=== PATIENT | female | born 1940 | race Caucasian/White ===

== ENCOUNTER → 2016-06-05 | Outpatient (CLI) | payer MEDICARE | END | disposition home or self-care (01) | LOC: LABWHC1 16:47 | PROVIDERS: ATTEND Internal Medicine Endocrinology, Diabetes & Metabolism | DX: E05.90 Thyrotoxicosis, unspecified without thyrotoxic crisis or storm (principal) | CPT/HCPCS: 36415; 84439; 84443; 84445; 84480 ==

== ENCOUNTER → 2016-07-02 | Outpatient (CLI) | payer MEDICARE ==
--- NOTE | 2016-07-02 10:02 | US ---
EXAMINATION TYPE: US thyroid st tissue head/neck DATE OF EXAM: 07/02/2016 9:34 AM COMPARISON: NONE CLINICAL HISTORY: E05.90 THYROTOXICOSIS. Known hypothyroidism, intermittent use of medication, no pre vious biopsy GLAND SIZE: Right Lobe: 4.0 x 1.2 x 1.4 cm Overall Parenchyma: lobular, heterogeneous Left Lobe: 4.4 x 1.9 x 1.2 cm Overall Parenchyma: lobular, heterogeneous Isthmus Thickness: 0.2 cm NODULES RIGHT: # of nodules measured on right: 0 LEFT: # of nodules measured on left: 0 ISTHMUS: # of nodules measured in the isthmus: 0 TECHNOLOGIST IMPRESSION: Bilateral neck scanned, no abnormal lymphadenopathy noted. Heterogeneous, l obular borders. Thyroid gland is within normal limits in size and slightly heterogeneous appearance but no discrete s olid or cystic nodules are evident bilaterally IMPRESSION: Thyroid gland is heterogeneous in appearance but no worrisome greater than 1 cm solid or cystic nodul es are evident.
== END | disposition home or self-care (01) ==
LOC: RADUSWWP 09:21
PROVIDERS: ATTEND Internal Medicine Endocrinology, Diabetes & Metabolism
DX: E05.90 Thyrotoxicosis, unspecified without thyrotoxic crisis or storm (principal)
CPT/HCPCS: 76536

== ENCOUNTER → 2016-07-17 | Outpatient (CLI) | payer MEDICARE ==
--- NOTE | 2016-07-18 11:15 | NM ---
EXAMINATION TYPE: NM thyroid image w uptake DATE OF EXAM: 07/18/2016 11:04 AM COMPARISON: NONE HISTORY: Thyrotoxicosis. TECHNIQUE: After the intravenous administration of 10.9 mCi Tc 99m Sodium Pertechnetate, thyroid imag ing is performed 7 minutes post injection. Thyroid iodine uptake is calculated after the oral adminis tration of 16 uCi I-131 capsule. FINDINGS: There is normal distribution of activity throughout the gland. The 4 hour iodine uptake is calculated at 14.5% (normal range 8-14%). The 24-hour iodine uptake is calculated at 44.2% (normal r ashley 15-35%). IMPRESSION: 1. NORMAL THYROID IMAGING. 2. EVIDENCE OF HYPERTHYROIDISM.
== END | disposition home or self-care (01) ==
LOC: RADNMMAIN 10:22
PROVIDERS: ATTEND Internal Medicine Endocrinology, Diabetes & Metabolism
DX: E05.90 Thyrotoxicosis, unspecified without thyrotoxic crisis or storm (principal)
CPT/HCPCS: 78014; A9528; A9512

== ENCOUNTER → 2016-08-26 | Outpatient (CLI) | payer MEDICARE ==
[2016-08-26 08:46] LABS: ALT 27 U/L (9-52); AST 33 U/L (14-36); Alkaline Phosphatase 133 U/L (38-126); Anion Gap 10 mmol/L; Blood Urea Nitrogen 21 mg/dL (7-17); Calcium 9.3 mg/dL (8.4-10.2); Carbon Dioxide 27 mmol/L (22-30); Chloride 106 mmol/L (98-107); Glucose 68 mg/dL (74-99); Non-African American GFR(MDRD) >60 (>60 ml/min/1.73 sqM); Potassium 4.2 mmol/L (3.5-5.1); Sodium 143 mmol/L (137-145); Total Bilirubin 0.6 mg/dL (0.2-1.3); Total Protein 7.2 g/dL (6.3-8.2)
== END ==
LOC: LABWHC1 07:56
PROVIDERS: ATTEND Internal Medicine Endocrinology, Diabetes & Metabolism
DX: E05.90 Thyrotoxicosis, unspecified without thyrotoxic crisis or storm (principal)
CPT/HCPCS: 36415; 80053; 84439; 84443

== ENCOUNTER → 2016-10-14 | Outpatient (CLI) | payer MEDICARE | END | disposition home or self-care (01) | LOC: LABWHC1 09:06 | PROVIDERS: ATTEND Internal Medicine Endocrinology, Diabetes & Metabolism | DX: E05.90 Thyrotoxicosis, unspecified without thyrotoxic crisis or storm (principal) | CPT/HCPCS: 36415; 84439; 84443; 84480 ==

== ENCOUNTER → 2016-12-10 | Outpatient (CLI) | payer MEDICARE ==
--- NOTE | 2016-12-10 11:43 | BD ---
EXAMINATION TYPE: MG DEXA axial skeleton. DATE OF EXAM: 12/10/2016 CLINICAL HISTORY: Height: 118 Weight: 61.5 FRAX RISK QUESTIONS: Alcohol (3 or more units per day): no Family History (Parent hip fracture): yes, mother Glucocorticoids (More than 3mos): no (Ex: prednisone, prednisolone, methylprednisolone, dexamethasone, and hydrocortisone). History of Fracture in Adulthood: yes Secondary Osteoporosis: 1. Type 1 Diabetes: no 2. Hyperthyroidism: yes 3. Menopause before 45: no 4. Malnutrition: no 5. Chronic liver disease: no Rheumatoid Arthritis: no Current Tobacco Use: no RISK FACTORS HISTORY OF: Hip Fracture (Right/Left): no Spine Fracture: no History of Wrist Fracture: yes When: age 47 Surgery to Hip(left): no Other Fractures over age 50: yes When: pelvis age 70; left lower femur 2016 Family History of Osteoporosis: no Active: yes Diet low in dairy products/other sources of calcium: at least one serving a day Postmenopausal woman: yes Take estrogen and/or progesterone medications: not now How long: hormonal contraceptives about 6 months; estrogen/progesterone about age [age] Lost more than 2 inches in height since high school: no Frequent falls: no Poor Health: no Hyperparathyroidism: no Adrenal Insufficiency: no MEDICATIONS: Prednisone or other steroids: no Thyroid Medications: yes Which medication: Methimazol How Long: over a year ...but in 2012 started briefly on Synthroid Osteoporosis Medications: no Additional Medications: calcium, Vitamin D, blood pressure meds, cholesterol meds, blood thinner Additional History: Breast CA, radiation, used antineoplastic for several years after breast CA...thy roid was first diagnosed as "hypo", now diagnosed as "hyper" EXAM MEASUREMENTS: Bone mineral densitometry was performed using the Leapset System. Bone mineral density as measured about the Lumbar spine is: ----- L1-L4(G/cm2): 0.900 T Score Values are as follows: ----- L2: -2.5 ----- L3: -2.3 ----- L4: -2.3 ----- L1-L4: -2.3 Bone mineral density has: Decreased -1.7% since study of: 01/05/2013 Bone mineral density about the R hip (g/cm2): 0.680 Bone mineral density about the L hip (g/cm2): 0.620 T Score values are as follows: -----R Neck: -2.6 -----L Neck: -3.0 -----R Total: -2.1 -----L Total: -2.6 Bone mineral density has: Decreased -7.5% since study of: 01/05/2013 IMPRESSION: OSTEOPOROSIS. NOTE: T-SCORE=SD OF THE YOUNG ADULT MEAN.
== END | disposition home or self-care (01) ==
LOC: RADBDWWP 10:32
PROVIDERS: ATTEND Internal Medicine Hematology & Oncology
DX: C50.919 Malignant neoplasm of unspecified site of unspecified female breast (principal); M81.0 Age-related osteoporosis without current pathological fracture
CPT/HCPCS: 77080

== ENCOUNTER → 2017-07-28 | Outpatient (CLI) | payer MEDICARE ==
[2017-07-28 10:24] LABS: HCT 42.3 % (34.0-46.0); HGB 13.2 gm/dL (11.4-16.0); MCH 31.8 pg (25.0-35.0); MCHC 31.2 g/dL (31.0-37.0); MCV 101.7 fL (80.0-100.0); Platelet Count 241 k/uL (150-450); RBC 4.16 m/uL (3.80-5.40); RDW 12.4 % (11.5-15.5); WBC 4.3 k/uL (3.8-10.6)
[2017-07-28 11:48] LABS: ALT 23 U/L (9-52); AST 33 U/L (14-36); Albumin 3.9 g/dL (3.5-5.0); Alkaline Phosphatase 93 U/L (38-126); Anion Gap 9 mmol/L; Blood Urea Nitrogen 20 mg/dL (7-17); Calcium 9.1 mg/dL (8.4-10.2); Carbon Dioxide 28 mmol/L (22-30); Chloride 105 mmol/L (98-107); Glucose 74 mg/dL (74-99); Potassium 4.4 mmol/L (3.5-5.1); Sodium 142 mmol/L (137-145); Total Bilirubin 0.3 mg/dL (0.2-1.3); Total Protein 6.8 g/dL (6.3-8.2)
[2017-07-28 12:06] LABS: T4, Free (Free Thyroxine) 1.15 ng/dL (0.78-2.19)
== END | disposition home or self-care (01) ==
LOC: LABWHC1 09:08
PROVIDERS: ATTEND Internal Medicine
DX: E05.00 Thyrotoxicosis with diffuse goiter without thyrotoxic crisis or storm (principal)
CPT/HCPCS: 36415; 80053; 84439; 84443; 84481; 85027

== ENCOUNTER → 2017-09-24 | Outpatient (CLI) | payer MEDICARE ==
--- NOTE | 2017-09-25 08:37 | MM ---
Reason for exam: additional evaluation requested from prior study. Last mammogram was performed 1 year and 1 month ago. History: Patient is postmenopausal, has history of breast cancer at age 65, and had previous chest radiation therapy at age 64. Family history of breast cancer in maternal grandmother at age 70. Lumpectomy of the right breast, February 12, 2006. Malignant right mammotome panel of the right breast, January 29, 2006. Radiation therapy of the right breast, 2005. Took hormonal contraceptives for 6 months. Took estrogen for 1 year 6 months beginning at age 57. Took progesterone for 1 year 6 months beginning at age 57. Took tamoxifen for 5 years beginning at age 65. Physical Findings: Nurse Summary: 1.25cm nodule in the right breast at 9 o'clock (nurse chanda). MG 3D Diag Mammo W/Cad HEIDI Bilateral CC and MLO view(s) were taken. Prior study comparison: August 29, 2016, bilateral MG 3d diag mammo w/cad HEIDI. June 08, 2015, bilateral MG 3d diag mammo w/cad HEIDI. Stable benign calcifications in the right breast. Stable post operative lumpectomy in the right breast. These results were verbally communicated with the patient and result sheet given to the patient on 09/24/17. ASSESSMENT: Incomplete: need additional imaging evaluation, BI-RAD 0 RECOMMENDATION: Ultrasound of the left breast. Manage patient on a clinical basis.
--- NOTE | 2017-09-25 08:44 | USB ---
Reason for exam: additional evaluation requested from abnormal screening. History: Patient is postmenopausal, has history of breast cancer at age 65, and had previous chest radiation therapy at age 64. Family history of breast cancer in maternal grandmother at age 70. Lumpectomy of the right breast, February 12, 2006. Malignant right mammotome panel of the right breast, January 29, 2006. Radiation therapy of the right breast, 2006. Took hormonal contraceptives for 6 months. Took estrogen for 1 year 6 months beginning at age 57. Took progesterone for 1 year 6 months beginning at age 57. Took tamoxifen for 5 years beginning at age 65. US Breast Limited RT Right breast ultrasound demonstrates a 1.3 x 0.8 x 0.9cm irregular, solid, hypoechoic lesion at 8 o'clock corresponds to the new palpable. Biopsy is recommended. No axillary lymphadenopathy. These results were verbally communicated with the patient and result sheet given to the patient on 09/24/17. ASSESSMENT: Suspicious, BI-RAD 4 RECOMMENDATION: Surgical consultation and ultrasound core biopsy of the right breast. Called Dr. Palomares with mammographic findings and has scheduled an appointment for the patient for 09/30/17 at 9:[address] Pierce. PRELIMINARY REPORT CALLED AND FAXED TO DR. PIERCE ON 09/25/17.
== END | disposition home or self-care (01) ==
LOC: RADMAMWWP 14:33
PROVIDERS: ATTEND Obstetrics & Gynecology
DX: R92.8 Other abnormal and inconclusive findings on diagnostic imaging of breast (principal); Z85.3 Personal history of malignant neoplasm of breast
CPT/HCPCS: 77066; 76642; G0279; 77062

== ENCOUNTER → 2017-10-27 | Outpatient (CLI) | payer MEDICARE ==
[2017-10-27 08:44] LABS: HGB 13.6 gm/dL (11.4-16.0); MCH 31.7 pg (25.0-35.0); MCHC 32.5 g/dL (31.0-37.0); MCV 97.4 fL (80.0-100.0); Mean Platelet Volume 6.6; Platelet Count 255 k/uL (150-450); RBC 4.31 m/uL (3.80-5.40); RDW 13.2 % (11.5-15.5); WBC 4.1 k/uL (3.8-10.6)
[2017-10-27 10:50] LABS: Albumin 4.1 g/dL (3.5-5.0); Calcium 9.3 mg/dL (8.4-10.2); Potassium 4.4 mmol/L (3.5-5.1); Total Bilirubin 0.5 mg/dL (0.2-1.3); Total Protein 6.8 g/dL (6.3-8.2)
[2017-10-27 10:58] LABS: T4, Free (Free Thyroxine) 1.32 ng/dL (0.78-2.19)
== END | disposition home or self-care (01) ==
LOC: LABWHC1 07:52
PROVIDERS: ATTEND Internal Medicine
DX: E78.5 Hyperlipidemia, unspecified (principal); E05.00 Thyrotoxicosis with diffuse goiter without thyrotoxic crisis or storm
CPT/HCPCS: 36415; 80053; 80061; 84439; 84443; 84445; 84481; 85027

== ENCOUNTER → 2018-01-28 | Outpatient (CLI) | payer MEDICARE ==
[2018-01-28 08:30] LABS: HGB 13.9 gm/dL (11.4-16.0); MCH 31.4 pg (25.0-35.0); MCHC 32.3 g/dL (31.0-37.0); MCV 97.1 fL (80.0-100.0); Mean Platelet Volume 6.8; Platelet Count 278 k/uL (150-450); RBC 4.43 m/uL (3.80-5.40); RDW 12.6 % (11.5-15.5); WBC 3.9 k/uL (3.8-10.6)
[2018-01-28 09:06] LABS: Albumin 3.9 g/dL (3.5-5.0); Calcium 9.2 mg/dL (8.4-10.2); Potassium 4.7 mmol/L (3.5-5.1); Total Bilirubin 0.5 mg/dL (0.2-1.3); Total Protein 6.9 g/dL (6.3-8.2)
[2018-01-28 09:10] LABS: T4, Free (Free Thyroxine) 1.22 ng/dL (0.78-2.19)
[2018-01-28 18:24] LABS: Vitamin D 25 Hydroxy 33.9 ng/mL (30.0-100.0)
[2018-01-28 21:17] LABS: Parathyroid Hormone Intact 120.5 pg/mL (14.0-72.0)
== END | disposition home or self-care (01) ==
LOC: LABWHC1 07:49
PROVIDERS: ATTEND Internal Medicine
DX: E55.9 Vitamin D deficiency, unspecified (principal); E05.00 Thyrotoxicosis with diffuse goiter without thyrotoxic crisis or storm; M81.0 Age-related osteoporosis without current pathological fracture
CPT/HCPCS: 36415; 80053; 82306; 83970; 84439; 84443; 84481; 85027

== ENCOUNTER → 2018-04-21 | Outpatient (CLI) | payer MEDICARE ==
[2018-04-21 09:23] LABS: HCT 40.5 % (34.0-46.0); HGB 13.5 gm/dL (11.4-16.0); MCH 32.1 pg (25.0-35.0); MCHC 33.3 g/dL (31.0-37.0); MCV 96.7 fL (80.0-100.0); Mean Platelet Volume 6.5; Platelet Count 220 k/uL (150-450); RBC 4.19 m/uL (3.80-5.40); RDW 13.2 % (11.5-15.5); WBC 3.4 k/uL (3.8-10.6)
[2018-04-21 17:21] LABS: Albumin 4.2 g/dL (3.80-4.90); Anion Gap 7.6 mmol/L (4.00-12.00); Calcium 8.9 mg/dL (8.7-10.3); Carbon Dioxide 26.4 mmol/L (21.6-31.8); Globulin 2.1 g/dL (2.1-3.7); Potassium 4.5 mmol/L (3.5-5.5); Total Bilirubin 0.4 mg/dL (0.2-1.2); Total Protein 6.3 g/dL (6.2-8.2)
== END | disposition home or self-care (01) ==
LOC: LABWHC1 08:30
PROVIDERS: ATTEND Internal Medicine
DX: E05.00 Thyrotoxicosis with diffuse goiter without thyrotoxic crisis or storm (principal)
CPT/HCPCS: 36415; 80053; 84443; 84481; 85027

== ENCOUNTER → 2018-08-24 | Outpatient (CLI) | payer MEDICARE ==
[2018-08-24 16:07] LABS: Anion Gap 9.9 mmol/L (4.00-12.00); Calcium 8.9 mg/dL (8.7-10.3); Carbon Dioxide 26.1 mmol/L (21.6-31.8); Potassium 4.5 mmol/L (3.5-5.5)
[2018-08-24 16:15] LABS: T4, Free (Free Thyroxine) 1.2 ng/dL (0.80-1.80)
== END ==
LOC: LABWHC1 08:22
PROVIDERS: ATTEND Internal Medicine
DX: E05.00 Thyrotoxicosis with diffuse goiter without thyrotoxic crisis or storm (principal); R79.89 Other specified abnormal findings of blood chemistry
CPT/HCPCS: 36415; 80048; 84439; 84443; 84481

== ENCOUNTER → 2018-09-25 | Outpatient (CLI) | payer MEDICARE ==
--- NOTE | 2018-09-25 09:28 | MM ---
Reason for exam: additional evaluation requested from abnormal screening. Last mammogram was performed 1 year ago. History: Patient is postmenopausal, has history of breast cancer at age 65, and had previous chest radiation therapy at age 64. Family history of breast cancer in maternal grandmother at age 70. Benign excisional biopsy of the right breast, 2018. Lumpectomy of the right breast, February 12, 2006. Malignant right mammotome panel of the right breast, January 29, 2006. Radiation therapy of the right breast, 2005. Took hormonal contraceptives for 6 months. Took estrogen for 1 year 6 months beginning at age 57. Took progesterone for 1 year 6 months beginning at age 57. Took tamoxifen for 5 years beginning at age 65. Physical Findings: Nurse did not find any significant physical abnormalities on exam. MG 3D Diag Mammo W/Cad HEIDI Bilateral CC and MLO view(s) were taken. Prior study comparison: September 24, 2017, bilateral MG 3d diag mammo w/cad HEIDI. August 29, 2016, bilateral MG 3d diag mammo w/cad HEIDI. The breast tissue is heterogeneously dense. This may lower the sensitivity of mammography. Previous mammotome biopsy in the right breast. Stable post lumpectomy changes in the right breast. No significant new findings when compared with previous films. These results were verbally communicated with the patient and result sheet given to the patient on 09/25/18. ASSESSMENT: Incomplete: need additional imaging evaluation, BI-RAD 0 RECOMMENDATION: Ultrasound of the right breast.
--- NOTE | 2018-09-25 09:32 | USB ---
Reason for exam: additional evaluation requested from abnormal screening. History: Patient is postmenopausal, has history of breast cancer at age 65, and had previous chest radiation therapy at age 64. Family history of breast cancer in maternal grandmother at age 70. Benign excisional biopsy of the right breast, 2018. Lumpectomy of the right breast, February 12, 2006. Malignant right mammotome panel of the right breast, January 29, 2006. Radiation therapy of the right breast, 2005. Took hormonal contraceptives for 6 months. Took estrogen for 1 year 6 months beginning at age 57. Took progesterone for 1 year 6 months beginning at age 57. Took tamoxifen for 5 years beginning at age 65. US Breast RT Right complete breast ultrasound includes all four quadrants, the retroareolar region and axilla. Finding demonstrates a 1.4 x 1.1 x 1.4cm irregular, hypoechoic, vascular lesion at 8 o'clock at prior surgical scar, previous biopsy indicating scar, necrosis, fibrosis and a 1.2 x 1.7 x 0.9cm lymph node at the axilla. These results were verbally communicated with the patient and result sheet given to the patient on 09/25/18. ASSESSMENT: Benign, BI-RAD 2 RECOMMENDATION: Follow-up diagnostic mammogram of both breasts in 1 year. Manage patient on a clinical basis.
== END ==
LOC: RADMAMWWP 08:14
PROVIDERS: ATTEND Surgery
DX: R92.8 Other abnormal and inconclusive findings on diagnostic imaging of breast (principal)
CPT/HCPCS: 77066; 76641; G0279; 77062

== ENCOUNTER → 2019-03-01 | Outpatient (CLI) | payer MEDICARE ==
[2019-03-01 18:52] LABS: African American GFR (CKD) 56.1 (60.0-200.0); Anion Gap 10.9 mmol/L (4.00-12.00); BUN/Creat Ratio 18.18 Ratio (12.00-20.00); Calcium 8.8 mg/dL (8.7-10.3); Carbon Dioxide 25.1 mmol/L (21.6-31.8); Potassium 4.2 mmol/L (3.5-5.5)
[2019-03-01 19:00] LABS: T4, Free (Free Thyroxine) 1.3 ng/dL (0.80-1.80)
== END | disposition home or self-care (01) ==
LOC: LABWHC1 09:16
PROVIDERS: ATTEND Internal Medicine
DX: M81.0 Age-related osteoporosis without current pathological fracture (principal); E05.00 Thyrotoxicosis with diffuse goiter without thyrotoxic crisis or storm
CPT/HCPCS: 36415; 80048; 84439; 84443; 84481

== ENCOUNTER → 2019-11-25 | Outpatient (CLI) | payer MEDICARE ==
--- NOTE | 2019-11-25 11:58 | MM ---
Reason for exam: additional evaluation requested from prior study. Last mammogram was performed 1 year and 2 months ago. History: Patient is postmenopausal, has history of breast cancer at age 65, and had previous chest radiation therapy at age 64. Family history of breast cancer in maternal grandmother at age 70. Benign excisional biopsy of the right breast, 2018. Lumpectomy of the right breast, February 12, 2006. Malignant right mammotome panel of the right breast, January 29, 2006. Radiation therapy of the right breast, 2005. Took hormonal contraceptives for 6 months. Took estrogen for 1 year 6 months beginning at age 57. Took progesterone for 1 year 6 months beginning at age 57. Took tamoxifen for 5 years beginning at age 65. Physical Findings: Nurse did not find any significant physical abnormalities on exam. MG 3D Diag Mammo W/Cad HEIDI Bilateral CC and MLO view(s) were taken. Prior study comparison: September 25, 2018, bilateral MG 3d diag mammo w/cad HEIDI. September 24, 2017, bilateral MG 3d diag mammo w/cad HEIDI. The breast tissue is heterogeneously dense. This may lower the sensitivity of mammography. Post surgical and post therapy changes right breast. Biopsy clip at the surgical scar. These results were verbally communicated with the patient and result sheet given to the patient on 11/25/19. ASSESSMENT: Benign, BI-RAD 2 RECOMMENDATION: Follow-up diagnostic mammogram of both breasts in 1 year.
== END | disposition home or self-care (01) ==
LOC: RADMAMWWP 10:42
PROVIDERS: ATTEND Internal Medicine Hematology & Oncology
DX: Z08 Encounter for follow-up examination after completed treatment for malignant neoplasm (principal); Z85.3 Personal history of malignant neoplasm of breast
CPT/HCPCS: 77066; G0279; 77062

== ENCOUNTER → 2020-06-16 | Outpatient (CLI) | payer MEDICARE ==
--- NOTE | 2020-06-16 08:32 | XR ---
EXAMINATION TYPE: XR chest 2V DATE OF EXAM: 06/16/2020 COMPARISON: 06/06/2014 TECHNIQUE: PA and lateral views submitted. HISTORY: Pleural effusion, abnormal x-ray FINDINGS: The lungs are clear and there is no pneumothorax, pleural effusion, or focal pneumonia. Hyperinflat ion suggests COPD. Degenerative changes spine. Metallic device overlying the subcutaneous tissues of the chest. No overt failure. Heart size normal. IMPRESSION: 1. No acute process. Correlate for COPD.
[2020-06-16 08:58] LABS: HCT 36.9 % (34.0-46.0); HGB 12.4 gm/dL (11.4-16.0); MCH 32.5 pg (25.0-35.0); MCHC 33.6 g/dL (31.0-37.0); Mean Platelet Volume 7.9; Platelet Count 390 k/uL (150-450); RBC 3.81 m/uL (3.80-5.40); RDW 12.9 % (11.5-15.5); WBC 10.9 k/uL (3.8-10.6)
[2020-06-16 17:04] LABS: ALT 12 U/L (8-44); AST 22 U/L (13-35); African American GFR (CKD) 55.7 (60.0-200.0); Alkaline Phosphatase 100 U/L (41-126); BUN/Creat Ratio 20.91 Ratio (12.00-20.00); Bilirubin, Conjugated <0.20 mg/dL (0.20-0.40); Carbon Dioxide 27.9 mmol/L (21.6-31.8); Chloride 99 mmol/L (96-109); Cholesterol 172 mg/dL (0-200); Globulin 2.1 g/dL (1.6-3.3); Glucose 86 mg/dL (70-110); Potassium 4.3 mmol/L (3.5-5.5); Sodium 142 mmol/L (135-145); Total Bilirubin 0.5 mg/dL (0.3-1.2); Total Protein 6.3 g/dL (6.2-8.2)
== END | disposition home or self-care (01) ==
LOC: LABWHC1 08:04
PROVIDERS: ATTEND Nuclear Medicine Nuclear Cardiology
DX: R06.02 Shortness of breath (principal); E78.2 Mixed hyperlipidemia; I48.0 Paroxysmal atrial fibrillation; R00.2 Palpitations
CPT/HCPCS: 36415; 71046; 80048; 80061; 80076; 85027

== ENCOUNTER → 2020-07-10 | Outpatient (CLI) | payer MEDICARE ==
[2020-07-10 21:40] LABS: Basophils # (A) 0.01 X 10*3/uL (0.00-0.10); Basophils % (A) 0.1 %; Eosinophils # (A) 0.06 X 10*3/uL (0.04-0.35); Eosinophils % (A) 0.7 %; HCT 38.5 % (37.2-46.3); HGB 11.8 g/dL (12.0-15.0); Lymphocytes # (A) 0.44 X 10*3/uL (0.90-5.00); Lymphocytes % (A) 4.9 %; MCH 31.1 pg (27.0-32.0); MCHC 30.6 g/dL (32.0-37.0); MCV 101.6 fL (80.0-97.0); Mean Platelet Volume 12.1 fL (9.5-12.2); Monocytes # (A) 0.23 X 10*3/uL (0.20-1.00); Monocytes % (A) 2.6 %; Neutrophils # (A) 8.22 X 10*3/uL (1.80-7.70); Neutrophils % (A) 91.5 %; Platelet Count 265 X 10*3/uL (140-440); RBC 3.79 X 10*6/uL (4.10-5.20); RDW 14.6 % (11.5-14.5); WBC 8.98 X 10*3/uL (4.50-10.00)
== END | disposition home or self-care (01) ==
LOC: LABWHC1 11:12
PROVIDERS: ATTEND Internal Medicine Critical Care Medicine
DX: J47.9 Bronchiectasis, uncomplicated (principal)
CPT/HCPCS: 36415; 82103; 82784; 82785; 85025; 86038; 86039; 86255; 86431

== ENCOUNTER → 2020-12-18 | Outpatient (CLI) | payer MEDICARE ==
--- NOTE | 2020-12-22 11:28 | MM ---
Reason for exam: additional evaluation requested from prior study. Last mammogram was performed 1 year and 1 month ago. History: Patient is postmenopausal, has history of breast cancer at age 65, and had previous chest radiation therapy at age 64. Family history of breast cancer in maternal grandmother at age 70. Benign excisional biopsy of the right breast, 2018. Lumpectomy of the right breast, February 12, 2006. Malignant right mammotome panel of the right breast, January 29, 2006. Radiation therapy of the right breast, 2005. Took hormonal contraceptives for 6 months. Took estrogen for 1 year 6 months beginning at age 57. Took progesterone for 1 year 6 months beginning at age 57. Took tamoxifen for 5 years beginning at age 65. Physical Findings: Nurse did not find any significant physical abnormalities on exam. MG 3D Diag Mammo W/Cad HEIDI Bilateral CC and MLO view(s) were taken. Prior study comparison: November 25, 2019, bilateral MG 3d diag mammo w/cad HEIDI. September 25, 2018, bilateral MG 3d diag mammo w/cad EHIDI. There are scattered fibroglandular densities. Previous mammotome biopsy in the right breast. Stable post surgical change right breast. No significant new findings when compared with previous films. These results were verbally communicated with the patient and result sheet given to the patient on 12/18/20. ASSESSMENT: Benign, BI-RAD 2 RECOMMENDATION: Routine screening mammogram of both breasts in 1 year.
== END | disposition home or self-care (01) ==
LOC: RADMAMWWP 14:35
PROVIDERS: ATTEND Internal Medicine Hematology & Oncology
DX: N64.89 Other specified disorders of breast (principal); Z78.0 Asymptomatic menopausal state; Z80.3 Family history of malignant neoplasm of breast
CPT/HCPCS: 77066; G0279; 77062

== ENCOUNTER → 2021-01-02 | Day surgery (SDC) | payer MEDICARE ==
[2020-12-29 12:05] VITALS: BMI 21.9
[~2021-01-02] MED LIST: LACTATED RINGERS 1,000 ML IV SCH; LIDOCAINE 1% (10MG/ML) FOR IV START INTRADERMA PRN; PROPOFOL 10 MG/ML 20 ML VIAL IV ONE
[2021-01-02 12:43] VITALS: TEMP 97
--- NOTE | 2021-01-02 13:28 | P.PCN ---
Date of Procedure: 01/02/21 Preoperative Diagnosis: Positive ColoGuard test Postoperative Diagnosis: Diverticulosis Internal hemorrhoids Procedure(s) Performed: Colonoscopy Anesthesia: MAC Surgeon: Jose Antonio Pathology: none sent Condition: stable Disposition: same day Indications for Procedure: 80yo female with recent Positive ColoGuard test. Her last colonoscopy was 5 years ago. She does have a family history of colon cancer with her mother. No current blood in her stool. Risks, benefits and alternatives were provided to the patient. She has provided consent for colonoscopy. Operative Findings: Diverticulosis Internal hemorrhoids Description of Procedure: The patient was brought into the endoscopy suite and placed in left lateral decubitus position and adequate sedation was achieved using conscious sedation. A digital rectal exam was performed and internal hemorrhoids were palpated. An endoscope was then placed in the rectum and advanced to the cecum was identified bilaterally including the appendiceal orifice and the ileocecal valve. The prep was good. The colonoscope was then slowly withdrawn, examining for any mucosal abnormalities. The cecum, ascending, transverse, descending and sigmoid colon were visualized adequately. There were no large neoplastic lesions noted throughout the colon. There were no obvious polyps noted throughout the colon. There was evidence of diverticulosis in the sigmoid colon with no active hemorrhage. There were no obvious inflammatory changes. Retroflexion was performed in the rectum and internal hemorrhoids were visible. Excess air was removed, the colonoscope withdrawn and the procedure terminated. The patient was then transferred to recovery unit in stable condition. Repeat colonoscopy should be performed based on symptoms due to the patient's age.
[2021-01-02 14:15] VITALS: BP 159/73; PULSE 72; RESP 16
== END | disposition home or self-care (01) ==
LOC: ORWHC2ENDO 12:18
PROVIDERS: ATTEND Surgery
DX: K64.8 Other hemorrhoids (principal); K57.30 Diverticulosis of large intestine without perforation or abscess without bleeding; I48.91 Unspecified atrial fibrillation; I10 Essential (primary) hypertension; E78.5 Hyperlipidemia, unspecified; K21.9 Gastro-esophageal reflux disease without esophagitis; Z80.0 Family history of malignant neoplasm of digestive organs; Z79.01 Long term (current) use of anticoagulants; Z79.899 Other long term (current) drug therapy
CPT/HCPCS: 45378; J2704

== ENCOUNTER → 2021-01-31 | Outpatient (CLI) | payer MEDICARE ==
--- NOTE | 2021-02-01 08:25 | US ---
EXAMINATION TYPE: US kidneys/renal and bladder DATE OF EXAM: 01/31/2021 COMPARISON: NONE CLINICAL HISTORY: 80-year-old female N18.31 stage 3 kidney disease. CKD TECHNIQUE: Multiple sonographic images of the kidneys and bladder are obtained. FINDINGS: EXAM MEASUREMENTS: Right Kidney: 9.3 x 3.8 x 4.3 cm Left Kidney: 9.1 x 4.6 x 4.0 cm Right Kidney: no evidence of hydronephrosis Left Kidney: limited evaluation due to overlying bowel content, no evidence of hydronephrosis Bladder: appears wnl Bilateral Jets seen: no IMPRESSION: 1. Some limitation in complete visualization of the left kidney due to overlying bowel. However, ther e is no hydronephrosis. 2. Neither ureteral jet is seen. Findings could reflect acute or chronic kidney disease.
== END | disposition home or self-care (01) ==
LOC: RADUSWWP 16:11
PROVIDERS: ATTEND Internal Medicine
DX: N18.9 Chronic kidney disease, unspecified (principal)
CPT/HCPCS: 76770

== ENCOUNTER → 2021-02-20 | Outpatient (CLI) | payer MEDICARE ==
[2021-02-20 13:13] LABS: Albumin 3.8 g/dL (3.5-5.0); Calcium 9.3 mg/dL (8.4-10.2); Potassium 4.7 mmol/L (3.5-5.1); Total Bilirubin 0.4 mg/dL (0.2-1.3); Total Protein 6.9 g/dL (6.3-8.2)
[2021-02-20 13:21] LABS: Prothrombin Time 10.6 sec (9.0-12.0)
[2021-02-20 13:25] LABS: Basophils % (A) 1 %; Eosinophils # (A) 0.2 k/uL (0-0.7); Eosinophils % (A) 4 %; HCT 40.7 % (34.0-46.0); HGB 12.6 gm/dL (11.4-16.0); Lymphocytes # (A) 0.9 k/uL (1.0-4.8); Lymphocytes % (A) 17 %; MCH 30.1 pg (25.0-35.0); Mean Platelet Volume 7.1; Monocytes # (A) 0.4 k/uL (0-1.0); Monocytes % (A) 7 %; Neutrophils # (A) 3.6 k/uL (1.3-7.7); Neutrophils % (A) 70 %; Platelet Count 265 k/uL (150-450); RBC 4.19 m/uL (3.80-5.40); RDW 14.2 % (11.5-15.5); WBC 5.2 k/uL (3.8-10.6)
== END | disposition home or self-care (01) ==
LOC: LABPAT 12:10
PROVIDERS: ATTEND Orthopaedic Surgery
DX: Z22.322 Carrier or suspected carrier of Methicillin resistant Staphylococcus aureus (principal); M17.11 Unilateral primary osteoarthritis, right knee
CPT/HCPCS: 80053; 85025; 85610; 87070

== ENCOUNTER 2021-03-20 05:56 | Day surgery (SDC) | payer MEDICARE ==
[2021-03-19 08:46] VITALS: BMI 21.9
--- NOTE | 2021-03-19 09:21 | HP ---
HISTORY AND PHYSICAL CHIEF COMPLAINT: Right knee pain. HISTORY OF PRESENT ILLNESS: The patient is a 80-year-old female who presents with progressive right knee pain for the past several years, worsening recently. She notes lateral pain, swelling and locking. She had a previous arthroscopy by another orthopedic surgeon this year, with actual worsening of her symptoms. She has also tried multiple injections. She notes daily pain that limits her normal function and activities. PAST MEDICAL HISTORY: Significant for reflux disease, arthritis and atrial fibrillation. PAST SURGICAL HISTORY: Significant for fixation of a left femur fracture, left knee arthroscopy, section and nasal surgery. CURRENT MEDICATIONS: Eliquis, verapamil and Aleve. ALLERGIES: SHE DENIES DRUG ALLERGIES. FAMILY HISTORY: Significant for COPD and cancer. SOCIAL HISTORY: Negative for current tobacco or alcohol use. REVIEW OF SYSTEMS: Sixteen-point review of systems otherwise reviewed and is noncontributory. PHYSICAL EXAMINATION: The patient is approximately 5 feet 2 inches, 123 pounds of mesomorphic habitus. HEENT exam is nonfocal. Neck is supple. She has painless passive motion of the right hip. Straight-leg raise is negative. Active motion of right knee minus 20 to 100 degrees of flexion. She has a moderate effusion. She is tender about the lateral joint line. She has genu valgum alignment. Collaterals are stable, Vita is negative. Lonnie's is equivocal. She does have an antalgic gait pattern. Her distal neurovascular exam appears intact in the right lower extremity. X-rays of the right knee show severe lateral compartment osteoarthrosis with subchondral sclerosis and [id number] changes. IMPRESSION: Right knee severe lateral compartment osteoarthrosis. RECOMMENDATIONS: I talked to the patient at length regarding her condition and treatment options. At this point, she is quite limited and symptomatic because of pain related to her osteoarthrosis despite previous conservative measures. After thorough discussion, she opted to proceed with surgery. We will plan to proceed with right total knee arthroplasty. We will reinstitute her Eliquis postoperatively. Risks and benefits were discussed at length in layman's terms. MMODL / IJN: [id number] /
[~2021-03-20 05:56] MED LIST changes: +ACETAMINOPHEN TAB 500 MG TAB PO PRN; -LACTATED RINGERS 1,000 ML IV SCH; -LIDOCAINE 1% (10MG/ML) FOR IV START INTRADERMA PRN; +MELOXICAM 7.5 MG TAB PO PRN; -PROPOFOL 10 MG/ML 20 ML VIAL IV ONE; +ROPIVACAINE/EPI/CLONIDINE/KET 50 ML SYRINGE MISCELLANE PRN; +TRANEXAMIC ACID 1,000 MG in SODIUM CHLORIDE 0.9% 100 ML IVPB PRN
[2021-03-20] MEDS ORDERED: ONDANSETRON 4 MG/2 ML VIAL IVP ONE ×2 (06:11→12:37)
[2021-03-20] MEDS ORDERED: DEXAMETHASONE SOD PHOSPHATE 4 MG/ML 1 ML VIAL IV ONE (06:11)
[2021-03-20] MEDS ORDERED: LIDOCAINE 1% (10MG/ML) FOR IV START INTRADERMA PRN (06:11)
[2021-03-20] MEDS ORDERED: LACTATED RINGERS 1,000 ML IV SCH (06:11)
[2021-03-20] MEDS ORDERED: MIDAZOLAM 2 MG/2 ML VIAL IV ONE (07:06)
[2021-03-20] MEDS ORDERED: ceFAZolin 1,000 MG in SODIUM CHLORIDE 0.9% 1,000 ML IRRIGATION ONE (08:21)
--- NOTE | 2021-03-20 09:44 | P.OP ---
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 This is a posterior stabilized implant. Anesthesia: regional, spinal Surgeon: Bucky Abad Small Engine Mechanic #1: Jan Villanueva Estimated Blood Loss (ml): 50 Pathology: other (Bone fragments) Condition: stable Disposition: PACU Indications for Procedure: The patient's a 80-year-old female who presents with progressive right knee pain secondary to osteoarthrosis despite previous conservative measures. A discussion of the risks and benefits of operative intervention versus continued conservative measures was made with patient and her family. Operative procedure surgery. Operative risks to include infection, neurovascular injury, development of blood clots, fracture, component loosening, composed failure and possible need for subsequent procedures was discussed. Informed consent was obtained. Operative Findings: As below Description of Procedure: The patient was brought to the operating room, and after induction of spinal anesthesia the right lower extremity was prepped and draped in a normal fashion. The tourniquet was inflated to 270 mm marker. A longitudinal incision extending 3 finger breaths above the superior pole of patella extending to the medial aspect the tibial tubercle was then made. The skin and subcutaneous tissues were divided sharply. Electrocautery was used for hemostasis. A medial parapatellar arthrotomy was performed. The medial soft tissues to include the s uperficial and deep portions of the medial collateral ligament were elevated subperiosteally. The patella was everted. A portion of the retropatellar fat pad was excised sharply. The anterior cruciate ligament was sacrificed. The popliteus and lateral collateral ligament were elevated subperiosteally off the lateral femoral epi condyle as there was a lateral contracture. Blunt retractors were placed. A starting hole was made in the distal femur 1 cm anterior to the posterior cruciate ligament origin. An intramedullary femoral guide was then inserted planning on 5 valgus distal cut with 9 mm distal resection. The cutting block was pinned in place. The distal cut was then made. The posterior referencing sizing guide was utilized. I felt size 4 narrow was most appropriate. 3 of external rotation was built into the system and verified off the trans-epicondylar axis and the posterior condyles. The cutting block was pinned in place. The anterior, posterior, and chamfer cuts then made. Bone fragments were removed. The intercondylar guide was placed and the notch cut was made with a sagittal saw. The bone block was removed in one fragment. The trial component was then placed. There is good anterior to posterior and medial to lateral fit. The distal peg holes were drilled. The trial component was removed. Attention was then paid towards preparing the proximal femur. An extra medullary guide was utilized in line with the tibial shaft and second metatarsal distally. I planned on 6 mm resection from the medial compartment. The cutting block was pinned in place. The proximal tibial cut was then made. The bone was removed in one fragment. The remnants of the medial and lateral menisci were excised at the capsular junction with electrocautery. The tibia sized most appropriately at size 3. The trial femoral and tibial components were placed along with a 9 mm articular surface. I was able to obtain full flexion and extension with internal and external rotation. After several flexion and extension cycles, the tibial rotation was marked with electrocautery line with the medial one third of the tibial tubercle. Attention was then paid towards preparing the patella. A patella reamer was utilized taking stem to 14 mm of bone stock. A good flush cut was made. The patella sized most appropriately 32 mm. The peg holes were drilled. The trial components placed. I had good patellofemoral tracking with no hands technique. The trial components were then removed. The tibia was prepared in the appropriate rotation with appropriate drill and keel punch. The posterior osteophytes were removed with a curved osteotome. The flexion and extension gaps were checked and felt to be symmetric at 9 mm. A trial components were then removed. The bony surfaces were prepared with pulsatile lavage and dried. The tibial component was then cemented place was fully seated. Excess cement was removed. The femoral component cemented place and was fully seated. Excess cement was removed. The trial 9 mm articular surface was placed and the knee was put in full extension. The patella component was cemented place. After the cement had sufficiently hardened, the knee was again taken through a range of motion. Again I was able to obtain full flexion and extension with varus and valgus stress. The trial 9 mm articular surface was removed and the final one inserted. This was fully seated. Care was taken to avoid any soft tissue interposition. Pulsatile lavage was again utilized. The medial parapatellar arthrotomy was closed with #2 Ethibond suture. The tourniquet was deflated with approximately 60 minutes total tourniquet time. Final hemostasis was obtained with the cautery. There was minimal bleeding therefore a deep drai n was not placed. The subcutaneous tissues were reapproximated with interrupted 2-0 Vicryl sutures. The skin was reapproximated with 3-0 subcuticular strata fix suture. Skin tape and adhesive was applied. A sterile dressing was applied. The patient was awoken from sedation and transferred to recovery room in good condition. Blood loss was estimated at 50 mL. No complications were incurred. Sponge and needle counts were correct at the end of the case. Jayce BUTT assisted during the major components of this case to include exposure, bone resection, implantation, and closure.
[2021-03-20] MEDS ORDERED: ROPIVACAINE 0.2%-NS ON-Q PUMP 1,090 MG, EMPTY PAIN BALL 1 EACH MISCELLANE PRN (09:45)
--- NOTE | 2021-03-20 10:18 | XR ---
EXAMINATION TYPE: XR knee limited RT DATE OF EXAM: 03/20/2021 CLINICAL HISTORY: Right knee pain and arthritis status post total knee replacement. TECHNIQUE: Portable AP and crosstable lateral views of the right knee are obtained immediately posto peratively. COMPARISON: Outside right knee x-ray February 08, 2021 FINDINGS: Metallic hardware from total right knee arthroplasty is seen and appears satisfactory in a lignment and position. There is evidence of recent surgery with diffuse subcutaneous gas and soft ti ssue swelling noted. IMPRESSION: METALLIC HARDWARE FROM TOTAL RIGHT KNEE ARTHROPLASTY IS SATISFACTORY IN ALIGNMENT.
[2021-03-20] MEDS ORDERED: ONDANSETRON 4 MG/2 ML VIAL IVP PRN (10:20)
[2021-03-20] MEDS ORDERED: HYDROmorphone 0.5 MG/0.5 ML SYRINGE IVP PRN (10:20)
[2021-03-20] MEDS ORDERED: HYDROcodone/APAP 5-325MG 1 EACH TAB PO PRN (10:20)
[2021-03-20] MEDS ORDERED: ACETAMINOPHEN TAB 325 MG TAB PO PRN (10:20)
[2021-03-20] MEDS ORDERED: MAGNESIUM HYDROXIDE 2,400 MG/10 ML CUP PO PRN (10:20)
[2021-03-20] MEDS ORDERED: NALOXONE 0.4 MG/ML 1 ML VIAL IV PRN (10:20)
[2021-03-20] MEDS ORDERED: LACTATED RINGERS 1,000 ML IV ONE ×2 (10:56→12:24)
[2021-03-20] MEDS: HYDROmorphone 0.5 MG/0.5 ML SYRINGE IVP PRN ×2 (11:45→12:52)
--- NOTE | 2021-03-20 12:58 | P.ANPRN ---
Procedure Note - Anesthesia - Nerve Block Performed Right Adductor Canal Infusion Time Out Performed: Yes Date of Procedure: 03/20/21 Procedure Start Time: 07:05 Procedure Stop Time: 07:15 Location of Patient: PreOp Indication: Acute Post-Operative Pain, Requested by Surgeon Sedation Type: Sedate with meaningful contact maintained Preparation: Sterile Prep, Sterile Dressing Position: Supine Catheter: Indwelling Needle Gauge: 21 Ultrasound used to visualize needle placement: Yes Ultrasound used to observe medication spread: Yes Blood Aspirated: No Pain Paresthesia on Injection Noted: No Resistance on Injection: Normal Image Stored and Saved: Yes Events: Uneventful and Well Tolerated (ropi .5% 20cc)
--- NOTE | 2021-03-20 13:00 | P.ANPRN ---
Procedure Note - Anesthesia - Nerve Block Performed Right [place] Single Time Out Performed: Yes Date of Procedure: 03/20/21 Procedure Start Time: 07:16 Procedure Stop Time: :20 Location of Patient: PreOp Indication: Acute Post-Operative Pain, Requested by Surgeon Sedation Type: Sedate with meaningful contact maintained Preparation: Sterile Prep Position: Supine Needle Types: Pajunk Needle Gauge: 21 Ultrasound used to visualize needle placement: Yes Ultrasound used to observe medication spread: Yes Blood Aspirated: No Pain Paresthesia on Injection Noted: No Resistance on Injection: Normal Image Stored and Saved: Yes Events: Uneventful and Well Tolerated (ropi .5% 20cc plus dexamethasone 4mg)
[2021-03-20] MEDS ORDERED: METOCLOPRAMIDE 5 MG/ML 2 ML VIAL ONE (13:01)
[2021-03-20] MEDS ORDERED: METOCLOPRAMIDE 5 MG/ML 2 ML VIAL IVP ONE (13:02)
[2021-03-20] MEDS ORDERED: CALCIUM CARBONATE 500 MG CHEWABLE PO PRN (14:37)
[2021-03-20] MEDS: METOPROLOL SUCCINATE (ER) 25 MG TAB.ER.24H PO SCH ×2 (15:50→22:06)
[2021-03-20] MEDS: APIXABAN 5 MG TAB PO SCH ×2 (15:50→17:43)
[2021-03-20] MEDS ORDERED: ENALAPRILAT 1.25 MG/ML 1 ML VIAL IVP PRN (18:00)
[2021-03-20] MEDS: HYDROcodone/APAP 5-325MG 1 EACH TAB PO PRN (18:01)
[2021-03-20] MEDS ORDERED: SENNOSIDES-DOCUSATE SODIUM 1 EACH TAB PO SCH (21:00)
[2021-03-20] MEDS ORDERED: ATORVASTATIN 10 MG TAB PO SCH (21:00)
[2021-03-20 22:55] VITALS: RESP 16
[2021-03-21 06:58] VITALS: PULSE 73; TEMP 98.4
[2021-03-21] MEDS ORDERED: PANTOPRAZOLE 40 MG TABLET PO SCH (07:30)
[2021-03-21] MEDS ORDERED: MULTIVITAMINS, THERA 1 EACH TAB PO SCH (09:00)
[2021-03-21] MEDS ORDERED: CHOLECALCIFEROL 25 MCG (1000 IU) TABLET PO SCH (09:00)
[2021-03-21] MEDS ORDERED: MAGNESIUM OXIDE 400 MG TAB PO SCH (09:00)
[2021-03-21 09:22] LABS: Basophils # (A) 0.01 X 10*3/uL (0.00-0.10); Basophils % (A) 0.1 %; Eosinophils # (A) 0.01 X 10*3/uL (0.04-0.35); Eosinophils % (A) 0.1 %; HCT 36.7 % (37.2-46.3); HGB 11.6 g/dL (12.0-15.0); Lymphocytes # (A) 0.96 X 10*3/uL (0.90-5.00); Lymphocytes % (A) 10.9 %; MCH 30.1 pg (27.0-32.0); MCHC 31.6 g/dL (32.0-37.0); MCV 95.1 fL (80.0-97.0); Mean Platelet Volume 10.5 fL (9.5-12.2); Monocytes # (A) 0.92 X 10*3/uL (0.20-1.00); Monocytes % (A) 10.5 %; Neutrophils # (A) 6.86 X 10*3/uL (1.80-7.70); Neutrophils % (A) 78.1 %; Platelet Count 259 X 10*3/uL (140-440); RBC 3.86 X 10*6/uL (4.10-5.20); RDW 14.8 % (11.5-14.5); WBC 8.79 X 10*3/uL (4.50-10.00)
--- NOTE | 2021-03-21 09:28 | P.PN ---
Progress Note - Text Progress Note Date: 03/21/21 (064) Anesthesiology Postop day 1 status post total knee arthroplasty with adductor canal catheter. Patient doing well. VAS 0 out of 10. Gross strength intact in lower extremity. Afebrile. Denies alterations in sensorium. Catheter site intact. Heart regular rate Lungs nonlabored Abdomen nondistended Assessment: Postop day 1 status post total knee arthroplasty with adductor canal catheter Plan: All questions answered. Maintain catheter 2 more days with patient removal at home. Instructions were given at discharge.
[2021-03-21 10:11] VITALS: BP 140/78
--- NOTE | 2021-03-21 10:13 | P.DS ---
Providers Date of admission: 03/20/2021 Expected date of discharge: 03/21/21 Attending physician: Bucky Abad Consults: 03/20/21 10:23 Consult Physician Routine Consulting Provider: Kervin Rivera Reason/Comments: Medical Management Do you want consulting provider notified?: Yes Primary care physician: Kervin Rivera Hospital Course: Date of admission: 03/20/2021 Date of discharge: 03/21/2021 Admission diagnosis: Right knee osteoarthritis Discharge diagnosis: Same Attending physician: Dr. Abad Surgical procedures: Right total knee arthroplasty Brief history: Patient is a 80-year-old female with a history of progressive primary right knee S arthritis. At this point patient has failed conservative treatment measures and has opted to proceed with a elective right total knee arthroplasty. Hospital course: Details of patient's surgery can be found in operative report. Patient tolerated the procedure well and was subsequently transported to orthopedic floor. Patient's orthopeidc and medical care was provided daily. Patient had daily laboratory tests performed for evaluation of overall blood counts 1. Patient had daily physical therapy to include strengthening range of motion as well as education with walker ambulation. Patient was treated with Eliquis for their postoperative DVT prophylaxis during their inpatient stay. Patient was noted to have a relatively uneventful postoperative course. Patient reported satisfactory pain control with oral pain medications by postoperative day 1. Patient showed satisfactory progress with physical therapy. Patient moved steadily through the program and had no difficulty meeting the goals by postoperative day 1. Given patient's otherwise satisfactory course and having met physical therapy goals, plan is to discharge patient home on postoperative day 1. Discharge condition/disposition: Patient will be discharged home in stable condition. Discharge medications: Instructions are given on resumption of patient's normal daily medications per primary care recommendation, in addition patient will be prescribed [place] 5 mg/325 mg; Zofran; Colace; resume Eliquis 5 mg BID. Discharge instructions: 1. Wound care and infection precautions, keep incision dry and covered while showering, no lotions, creams, moisturizers. No soaking, tubs, pools, hottubs. Do not scrub over the incision. 2. Weight-bear as tolerated with walker / cane until follow-up. 3. Ice and elevate when necessary. Do not exceed 20 minutes per hour with ice pack. 4. Utilize compression sleeve until seen at first follow up appointment. 5. Visiting nursing care. 6. Home physical therapy including home CPM. 7. Pain meds and anticoagulants per prescription. 8. Pain medication has potential to cause constipation. Increase oral fluid and fiber intake. Contact primary care provider if you have not had a bowel movement within 48 hours after discharge 9. No anti-inflammatory medication until discussed at first post operative visit, this including Motrin, Aleve, Mobic, Diclofenac. 10. Follow up in office at 2 weeks postop with Jayce Villanueva PA-C / Andi Berg PA-C 11. Follow up with your primary care doctor 7-10 days after discharge. 12. Contact [facility] with any questions, . While showering, cover ex-fusion tape/mesh tape with Saran wrap. Assessment: Right knee osteoarthritis Procedures: Right total knee arthroplasty Patient Condition at Discharge: Good Plan - Discharge Summary Discharge Rx Participant: No New Discharge Prescriptions: New HYDROcodone/APAP 5-325MG [[place] 5-325] 1 tab PO Q6HR PRN #36 tab PRN Reason: Pain Ondansetron [Zofran] 4 mg PO Q12HR PRN #6 tab PRN Reason: Nausea Docusate [Colace] 100 mg PO DAILY #30 capsule No Action Apixaban [Eliquis] 5 mg PO BID Omeprazole [PriLOSEC] 20 mg PO HS Multivit with Calcium,Iron,Min [Women's Daily Multivitamin] 1 tab PO DAILY Calcium Carbonate [Calcium] 600 mg PO DAILY Metoprolol Succinate (ER) [Toprol XL] 25 mg PO BID Atorvastatin Calcium [Lipitor] 10 mg PO HS Magnesium Oxide [Magox 400] 400 mg PO DAILY Krill Oil 500 mg PO DAILY lisinopriL [Zestril] 2.5 mg PO DAILY Turmeric Root Extract [Turmeric] 500 mg PO DAILY Cholecalciferol [Vitamin D3 (25 Mcg = 1000 Iu)] 50 mcg PO DAILY Lysine [l-Lysine] 500 mg PO DAILY Discharge Medication List Apixaban [Eliquis] 5 mg PO BID 04/13/16 [History] Calcium Carbonate [Calcium] 600 mg PO DAILY 04/13/16 [History] Multivit with Calcium,Iron,Min [Women's Daily Multivitamin] 1 tab PO DAILY 04/13/16 [History] Omeprazole [PriLOSEC] 20 mg PO HS 04/13/16 [History] Atorvastatin Calcium [Lipitor] 10 mg PO HS 12/29/20 [History] Krill Oil 500 mg PO DAILY 12/29/20 [History] Magnesium Oxide [Magox 400] 400 mg PO DAILY 12/29/20 [History] Metoprolol Succinate (ER) [Toprol XL] 25 mg PO BID 12/29/20 [History] Cholecalciferol [Vitamin D3 (25 Mcg = 1000 Iu)] 50 mcg PO DAILY 03/19/21 [History] Lysine [l-Lysine] 500 mg PO DAILY 03/19/21 [History] Turmeric Root Extract [Turmeric] 500 mg PO DAILY 03/19/21 [History] lisinopriL [Zestril] 2.5 mg PO DAILY 03/19/21 [History] Docusate [Colace] 100 mg PO DAILY #30 capsule 03/21/21 [Rx] HYDROcodone/APAP 5-325MG [[place] 5-325] 1 tab PO Q6HR PRN #36 tab 03/21/21 [Rx] Ondansetron [Zofran] 4 mg PO Q12HR PRN #6 tab 03/21/21 [Rx] Follow up Appointment(s)/Referral(s): [facility], [NON-STAFF] - ([facility] will call you to schedule your home care/home physical therapy visits. ) Andi Berg, PAC [PHYSICIAN DROP HAMMER SETTER UP] - 04/05/21 9:20 am [facility],Equipment [NON-STAFF] - (*Please call [facility] once home to arrange delivery of the Continuous Passive Motion (CPM) machine. ) Patient Instructions/Handouts: Knee Replacement (GEN) Discharge Disposition: HOME WITH HOME HEALTH SERVICES
--- NOTE | 2021-03-21 11:01 | P.PN ---
Subjective Progress Note Date: 03/21/21 Principal diagnosis: Right knee osteoarthritis Patient was seen at bedside this morning resting and sitting up in chair. Patient says physical therapy went well this morning and she walked down the hallway and up-and-down a couple steps. Patient says most the pain she has is located just above the knee. Patient says she did have a bowel movement this morning. Patient says she does have walker at home to use. Patient says she is ready to go home today. Patient says she is also using incentive spirometer as well. Patient denies chest pain, fever, shortness of breath, nausea, vomiting, change in vision, loss of bowel/bladder control. Objective - Vital Signs Vital signs: Vital Signs Temp 98.4 F 03/21/21 06:56 Pulse 73 03/21/21 06:56 Resp 16 03/21/21 06:56 BP 169/70 03/21/21 06:56 Pulse Ox 94 L 03/21/21 02:25 Intake & Output 03/20/21 03/21/21 03/21/21 18:59 06:59 18:59 Intake Total 1851 240 Output Total 400 Balance 1451 240 Weight 54.7 kg Intake: IV 1851 Oral 240 Output: Urine 350 Estimated Blood Loss 50 Other: # Voids 4 - Exam Right knee: Incision is clean, dry, and intact. The exofin fusion tape is in good condition. There is minimal soft tissue swelling and ecchymosis surrounding the medial and lateral aspects of the incision. Calf is soft, no tenderness with palpation. Plantar flexion, dorsiflexion, EHL, FHL are intact. Sensory exam to light touch throughout the extremity is intact, dorsal pedis pulses 2+. - Labs CBC & Chem 7: 03/21/21 06:12 Labs: Abnormal Lab Results - Last 24 Hours (Table) 03/21/21 Range/Units 06:12 RBC 3.86 L (4.10-5.20) X 10*6/uL Hgb 11.6 L (12.0-15.0) g/dL Hct 36.7 L (37.2-46.3) % MCHC 31.6 L (32.0-37.0) g/dL RDW 14.8 H (11.5-14.5) % Eosinophils # 0.01 L (0.04-0.35) X 10*3/uL Assessment and Plan Assessment: Postoperative day 1 status post right total knee arthroplasty Plan: 1. Right knee osteoarthritis - right total knee arthroplasty performed yesterday, 03/20/2021. Patient stable this morning. Plan discharge home today with health services. 2. Appreciate medical management 3. Pain management - going home with [place] 5 mg/325 mg 4. GI prophylaxis - going home with Colace 100 mg 5. DVT prophylaxis - going to resume home med Eliquis 5 mg BID x 2 weeks 6. PT/OT - weightbearing as tolerated with walker for assistance 7. Encourage incentive spirometer use 8. Discharge planning - plan discharge home today with health services. Time with Patient: Less than 30
[2021-03-21] MEDS: HYDROcodone/APAP 5-325MG 1 EACH TAB PO PRN (11:06)
--- NOTE | 2021-03-21 13:05 | P.CONS ---
History of Present Illness - Reason for Consult Consult date: 03/21/21 Medical management COPD, hypertension Requesting physician: Bucky Abad - Chief Complaint Right knee pain, failed conservative measures - History of Present Illness (80-year-old female status post right total knee arthroplasty related to right knee severe osteoarthrosis, failed conservative treatment. Tolerated procedure well. Pain controlled. Passing flatus. PT pending. Denies lightheadedness, dizziness or focal deficits. Denies nausea vomiting or diarrhea. Denies chest pain, palpitations or shortness of breath. Afebrile, normal WBC. Hemoglobin 11.6, platelets 259, renal function stable.VSS, maintaining O2 sats in the 90s on room air. Anticoagulated on Eliquis with Protonix for GI prophylaxis. Review of Systems Constitutional: Denied any fatigue denied any fever. Cardio vascular: denied any chest pain, palpitations Gastrointestinal denied any nausea vomiting Pulmonary: Denied any shortness of breath cough Neurologic denied any new focal deficits ROS Statement: Those systems with pertinent positive or pertinent negative responses have been documented in the HPI. ROS Other: All systems not noted in ROS Statement are negative. Past Medical History Past Medical History: Atrial Fibrillation, COPD, GERD/Reflux, Hyperlipidemia, Hypertension Additional Past Medical History / Comment(s): + COLOGARD TEST History of Any Multi-Drug Resistant Organisms: None Reported Past Surgical History: Breast Surgery, Section, Orthopedic Surgery Additional Past Surgical History / Comment(s): left torn menicus repair, dong. bunion surgeries, right lumpectomy, COLONOSCOPY, RT KNEE SCOPE Past Anesthesia/Blood Transfusion Reactions: No Reported Reaction Past Psychological History: No Psychological Hx Reported Smoking Status: Never smoker Past Alcohol Use History: None Reported Past Drug Use History: None Reported - Past Family History Mother Family Medical History: Cancer Additional Family Medical History / Comment(s): colon Medications and Allergies Home Medications Medication Instructions Recorded Confirmed Type Apixaban [Eliquis] 5 mg PO BID 04/13/16 03/19/21 History Calcium Carbonate [Calcium] 600 mg PO DAILY 04/13/16 03/19/21 History Multivit with Calcium,Iron,Min 1 tab PO DAILY 04/13/16 03/19/21 History [Women's Daily Multivitamin] Omeprazole [PriLOSEC] 20 mg PO HS 04/13/16 03/19/21 History Atorvastatin Calcium [Lipitor] 10 mg PO HS 08/06/21 10/25/21 History Krill Oil 500 mg PO DAILY 12/29/20 03/19/21 History Magnesium Oxide [Magox 400] 400 mg PO DAILY 12/29/20 03/19/21 History Metoprolol Succinate (ER) [Toprol 25 mg PO BID 12/29/20 03/19/21 History XL] Cholecalciferol [Vitamin D3 (25 50 mcg PO DAILY 03/19/21 03/19/21 History Mcg = 1000 Iu)] Lysine [l-Lysine] 500 mg PO DAILY 03/19/21 03/19/21 History Turmeric Root Extract [Turmeric] 500 mg PO DAILY 03/19/21 03/19/21 History lisinopriL [Zestril] 2.5 mg PO DAILY 03/19/21 03/19/21 History Docusate [Colace] 100 mg PO DAILY #30 capsule 03/21/21 Rx HYDROcodone/APAP 5-325MG [[place] 1 tab PO Q6HR PRN #36 tab 03/21/21 Rx 5-325] Ondansetron [Zofran] 4 mg PO Q12HR PRN #6 tab 03/21/21 Rx Allergies Allergy/AdvReac Type Severity Reaction Status Date / Time oxycodone [From OxyContin] AdvReac Nausea & Verified 03/19/21 08:37 Vomiting Physical Exam Vitals: Vital Signs Temp Pulse Pulse Pulse Resp BP Pulse Ox 03/21/21 10:09 140/78 03/21/21 06:56 98.4 F 73 16 169/70 03/21/21 02:25 97.6 F 62 162/78 94 L 03/20/21 20:00 69 16 03/20/21 19:59 97.9 F 69 16 164/52 95 03/20/21 17:44 134/66 03/20/21 16:40 65 180/73 03/20/21 16:25 70 167/77 03/20/21 16:10 74 154/73 03/20/21 15:56 69 175/75 03/20/21 15:25 68 174/72 03/20/21 14:58 62 160/77 03/20/21 14:44 63 154/71 03/20/21 14:28 97.8 F 71 18 178/81 95 10/26/21 13:15 59 L 15 168/74 96 03/20/21 12:42 61 16 154/72 97 Intake and Output 03/20/21 03/21/21 03/21/21 22:59 06:59 14:59 Intake Total 240 Output Total 350 Balance -350 240 Intake: Oral 240 Output: Urine 350 Other: # Voids 4 - Exam GENERAL: Pt awake and alert, well-appearing, well-nourished,no acute distress. HEAD: Atraumatic, normocephalic. EYES: Pupils equal, round, and reactive to light, sclera anicteric, conjunctiva are normal. ENT: Moist mucous membranes. NECK:Supple without lymphadenopathy or JVD. LUNGS: Breath sounds clear to auscultation bilaterally. No wheezes, rales, or rhonchi. HEART: Heart S1, S2, no S3 or S4. Irregularly irregular. No murmurs, rubs or gallops. ABDOMEN: Soft, nontender, nondistended, normoactive bowel sounds. No guarding, no rebound. EXTREMITIES: 2+ peripheral pulses. No edema. No calf tenderness. NEUROLOGICAL: Pt oriented x 3. Cranial nerves II through XII grossly intact. Strength and sensation grossly intact. PSYCH: Normal mood, normal affect. SKIN: Warm, dry, intact. Normal turgor. No rashes. Results CBC & Chem 7: 03/21/21 06:12 Labs: Abnormal Lab Results - Last 24 Hours (Table) 03/21/21 Range/Units 06:12 RBC 3.86 L (4.10-5.20) X 10*6/uL Hgb 11.6 L (12.0-15.0) g/dL Hct 36.7 L (37.2-46.3) % MCHC 31.6 L (32.0-37.0) g/dL RDW 14.8 H (11.5-14.5) % Eosinophils # 0.01 L (0.04-0.35) X 10*3/uL Assessment and Plan Assessment: Severe osteoarthrosis of right knee, status post right total knee arthroplasty Hypothyroidism Hypertension Hyperlipidemia History of paroxysmal atrial fibrillation Plan: Continue on current medication regime, monitoring and symptomatic treatment. PT pending. Pain management as per orthopedic surgery. Maintain GI and DVT prophylaxis. Significant clinical improvement, patient is hoping for discharge later today as per orthopedic surgery. Thank you Dr. Abad for the consult. The impression and plan of care has been dictated as directed. : I performed a history and examination of this patient, discussed the same with the dictator. I agree with the dictator's note ,documented as a scribe. Any additional findings or plans will be noted.
[2021-03-21] MEDS ORDERED: APIXABAN 5 MG TAB PO SCH (21:00)
== END 2021-03-21 12:37 | disposition home health service (06) ==
LOC: OR 05:56 → 4SSUR 14:01 → OR 03-21 11:31
PROVIDERS: ATTEND Orthopaedic Surgery
DX: M17.11 Unilateral primary osteoarthritis, right knee (principal); E78.5 Hyperlipidemia, unspecified; I48.0 Paroxysmal atrial fibrillation; Z79.01 Long term (current) use of anticoagulants; Z79.899 Other long term (current) drug therapy
CPT/HCPCS: 64999; 64448; 76942; 87635; 73560; 27447; C1713 ×2; C1776; J2250; J1100; J2765; J0690 ×2; J2405; J1170; J2795; 85025

== ENCOUNTER → 2021-12-19 | Outpatient (CLI) | payer MEDICARE ==
--- NOTE | 2021-12-20 14:30 | MM ---
Reason for Exam: Screening (asymptomatic). Last screening mammogram was performed 12 month(s) ago. Patient History: Menarche at age 15. First Full-Term at age 19. Postmenopausal. Breast cancer, right, age 65. Previous chest radiation therapy at age 64. Estrogen for 1 year, 6 months, from age 57 until age 58. Progesterone for 1 year, 6 months, from age 57 until age 58. Hormonal Contraceptives for 6 months until age 21. Tamoxifen for 5 years from age 65 until age 70. 02/12/2006, Lumpectomy on the Right side. 2017, Benign Excisional Biopsy on the right side. 01/29/2006, Malignant Core Biopsy on the right side. 2005, Radiation Therapy on the right side. Maternal grandmother had breast cancer, age 70. Prior Study Comparison: 09/25/2018 Bilateral Diagnostic Mammogram, MERGED WITH [facility]. 11/25/2019 Bilateral Diagnostic Mammogram, MERGED WITH [facility]. 12/18/2020 Bilateral Diagnostic Mammogram, MERGED WITH [facility]. Tissue Density: The breast tissue is heterogeneously dense. This may lower the sensitivity of mammography. Findings: Analyzed By CAD. There is a distortion adjacent to a biopsy core marker within the right breast. This finding is stable from comparison. The right breast is somewhat smaller than the left. Benign vascular calcifications present bilaterally. Focal asymmetry within the left mediolateral oblique view anteriorly appears to been present on prior examinations No suspicious groups of microcalcifications, spiculated or lobular masses, architectural distortion or other secondary signs of malignancy are mammographically apparent. Overall Assessment: Benign, BI-RAD 2 Management: Screening Mammogram of both breasts in 1 year. A negative mammogram report should not preclude additional follow up of suspicious palpable abnormalities. Patient should continue monthly self breast exam. A clinical breast exam by your physician is recommended on an annual basis and results should be correlated with mammographic findings. Electronically signed and approved by: Davion Lunsford D.O. Radiologis
== END | disposition home or self-care (01) ==
LOC: RADMAMWWP 14:34
PROVIDERS: ATTEND Internal Medicine Hematology & Oncology
DX: Z12.31 Encounter for screening mammogram for malignant neoplasm of breast (principal); Z78.0 Asymptomatic menopausal state; Z80.3 Family history of malignant neoplasm of breast
CPT/HCPCS: 77063; 77067

== ENCOUNTER 2022-08-27 05:51 | Day surgery (SDC) | payer MEDICARE ==
[2022-08-23 14:24] VITALS: BMI 21.9
--- NOTE | 2022-08-26 10:01 | P.HPOR ---
History of Present Illness H&P Date: 08/26/22 Chief Complaint: Left knee pain The patient is an 81-year-old female who presents with progressive left knee pain for the past several years. It's worsened recently. She notes buckling and swelling. She has lateral pain with weightbearing activities. She's tried medications in addition to injections with only partial temporary relief. She's tried multiple modalities over the years including analgesics, bracing, injections, and activity modifications. She notes it severely limits her function and activities. Review of Systems As per HPI Past Medical History Past Medical History: Atrial Fibrillation, Cancer, COPD, GERD/Reflux, Hyperlipidemia, Hypertension, Osteoarthritis (OA) Additional Past Medical History / Comment(s): Hx right breast cancer 10 yrs ago. Hx Migraines when younger, none now. History of Any Multi-Drug Resistant Organisms: None Reported Past Surgical History: Breast Surgery, Section, Joint Replacement, Orthopedic Surgery Additional Past Surgical History / Comment(s): Left torn menicus repair, bilateral bunion surgeries, right breast lumpectomy, colonoscopy, right knee arthroscopy, right knee replacement. Previous left distal femoral fracture fixation. Past Anesthesia/Blood Transfusion Reactions: Postoperative Nausea & Vomiting (PONV) Past Psychological History: No Psychological Hx Reported Smoking Status: Never smoker Past Alcohol Use History: None Reported Past Drug Use History: None Reported - Past Family History Mother Family Medical History: Cancer Additional Family Medical History / Comment(s): Colon cancer. Medications and Allergies Home Medications Medication Instructions Recorded Confirmed Type Multivit with Calcium,Iron,Min 1 tab PO DAILY 04/13/16 08/23/22 History [Women's Daily Multivitamin] Krill Oil 500 mg PO DAILY 12/29/20 08/23/22 History Lysine [l-Lysine] 500 mg PO DAILY 03/19/21 08/23/22 History Turmeric Root Extract [Turmeric] 500 mg PO DAILY 03/19/21 08/23/22 History Apixaban [Eliquis] 2.5 mg PO BID 08/23/22 08/23/22 History Garlic Extract [Garlic] 2,400 mg PO BID 08/23/22 08/23/22 History Magnesium 250 mg PO DAILY 08/23/22 08/23/22 History carvediloL [Coreg] 6.25 mg PO BID 08/23/22 08/23/22 History Allergies Allergy/AdvReac Type Severity Reaction Status Date / Time oxycodone [From OxyContin] AdvReac Nausea & Verified 08/23/22 14:09 Vomiting Physical Examination - Knee left Appearance: effusion Effusion grade: grade 2 Valgus alignment in stance: 10 degrees Tenderness with palpation: lateral Pain: throughout ROM Gait: limping ROM: extension: -10 degrees ROM: flexion: 100 degrees Crepitus with motion: Yes Strength: extension: 5/5 Strength: flexion: 5/5 Meniscal tests: lateral meniscal tests: positive, lateral joint line pain: positive Results The patient is a well-developed female, approximate 5 foot 2, 122 pounds. HEENT exam is nonfocal, neck is supple. She has painless passive motion of the left hip. Straight leg raise is negative. Her distal neurovascular appears intact left lower extremity. - Diagnostic results Knee x-ray: image reviewed (3 views of the left knee obtaining the office show severe lateral compartment narrowing with [id number] changes and subchondral sclerosis. Previous distal femoral fixation is noted.) Assessment and Plan Assessment: Left knee severe lateral compartment osteoarthrosis History of ORIF left distal femur fracture with retained hardware Plan: I talked to the patient regarding her condition and treatment options. At this point she is quite symptomatic and limited because of pain related to her osteoarthrosis despite conservative measures. After thorough discussion she has proceed with surgery. We'll proceed with left total knee arthroplasty. She understands this may require removal of some or all of her previous hardware. Risks and benefits were discussed at length in layman's terms. We will reinstitute her anticoagulation postoperatively.
[~2022-08-27 05:51] MED LIST changes: -ROPIVACAINE/EPI/CLONIDINE/KET 50 ML SYRINGE MISCELLANE PRN; -TRANEXAMIC ACID 1,000 MG in SODIUM CHLORIDE 0.9% 100 ML IVPB PRN; +TRANEXAMIC ACID IN NACL,ISO-OS 1,000 MG in SALINE 1 100ML.BAG IVPB PRN
[2022-08-27] MEDS ORDERED: DEXAMETHASONE SOD PHOSPHATE 4 MG/ML 1 ML VIAL IV ONE (06:04)
[2022-08-27] MEDS ORDERED: MIDAZOLAM 2 MG/2 ML VIAL IV PRN (06:04)
[2022-08-27] MEDS ORDERED: ONDANSETRON 4 MG/2 ML VIAL IVP ONE (06:04)
[2022-08-27] MEDS ORDERED: LIDOCAINE 1% (10MG/ML) FOR IV START INTRADERMA PRN (06:04)
[2022-08-27] MEDS: LACTATED RINGERS 1,000 ML IV SCH (06:51)
[2022-08-27] MEDS ORDERED: HYDROmorphone 0.5 MG/0.5 ML SYRINGE IVP PRN ×3 (07:00→09:51)
[2022-08-27] MEDS ORDERED: PROPOFOL 10 MG/ML 20 ML VIAL IV ONE (07:41)
[2022-08-27] MEDS ORDERED: MIDAZOLAM 2 MG/2 ML VIAL ONE (07:41)
[2022-08-27] MEDS ORDERED: LIDOCAINE 2% INJ 20 MG/ML (2 ML VIAL) ONE (07:41)
[2022-08-27] MEDS ORDERED: hydrALAZINE HCL 20 MG/ML 1 ML VIAL ONE (07:41)
[2022-08-27] MEDS ORDERED: fentaNYL (PF) 50 MCG/ML 2 ML AMP ONE (07:41)
[2022-08-27] MEDS ORDERED: SUCCINYLCHOLINE CHLORIDE 200 MG/10 ML VIAL IV ONE (07:41)
[2022-08-27] MEDS ORDERED: HYDROmorphone (PF) 1 MG/ML ONE (07:41)
[2022-08-27] MEDS ORDERED: ROPIVACAINE 5 MG/ML 30 ML VIAL ONE (07:41)
[2022-08-27] MEDS ORDERED: GLYCOPYRROLATE 0.2 MG/ML 2 ML VIAL ONE (07:41)
[2022-08-27] MEDS ORDERED: DEXAMETHASONE SOD PHOSPHATE 4 MG/ML 1 ML VIAL ONE (07:41)
[2022-08-27] MEDS ORDERED: ROCURONIUM 10 MG/ML (5 ML VIAL) IV ONE (07:41)
[2022-08-27] MEDS ORDERED: NEOSTIGMINE 1 MG/ML 10 ML VIAL ONE (07:41)
[2022-08-27] MEDS ORDERED: ceFAZolin 3,000 MG in SODIUM CHLORIDE 0.9% IRRIGATIO 3,000 ML IRRIGATION ONE (08:14)
[2022-08-27] MEDS ORDERED: LACTATED RINGERS 1,000 ML IV ONE (09:20)
[2022-08-27] MEDS ORDERED: MAGNESIUM HYDROXIDE 2,400 MG/10 ML CUP PO PRN (09:51)
[2022-08-27] MEDS ORDERED: HYDROcodone/APAP 7.5-325MG 1 EACH TAB PO PRN (09:51)
[2022-08-27] MEDS ORDERED: NALOXONE 0.4 MG/ML 1 ML VIAL IV PRN (09:51)
--- NOTE | 2022-08-27 10:12 | P.OP ---
Date of Procedure: 08/27/22 Preoperative Diagnosis: Left knee severe tricompartmental osteoarthrosis/irritating hardware Postoperative Diagnosis: Same Procedure(s) Performed: Left total knee arthroplastycementedposterior stabilized/hardware removal left distal femur Implants: Depuy Attune size 4 narrow cemented femoral component, size 3 cemented tibial component, 12 mm articular surface, 32 mm cemented patellar component. This is a posterior stabilized implant. Anesthesia: [facility], [facility] Surgeon: Bucky Abad Orientation And Mobility Specialist #1: Andi Berg Estimated Blood Loss (ml): 50 Pathology: none sent Condition: stable Disposition: PACU Indications for Procedure: The patient is an 81-year-old female who presents with progressive left knee pain secondary to osteoporosis despite conservative measures. After a thorough discussion she opted to proceed with surgery. Operative risks to include infection, neurovascular injury, development of blood clots, component loosening/failure need for subsequent procedures was discussed. I also discussed the possible need for removal of her distal femoral hardware to accommodate the implant. Operative Findings: As below Description of Procedure: The patient was brought to the operating room, and after induction of spinal anesthesia the left lower extremity was prepped and draped in a normal fashion. The tourniquet was inflated to 270 mm marker. A longitudinal incision extending 3 finger breaths above the superior pole of patella extending to the medial aspect the tibial tubercle was then made. The skin and subcutaneous tissues were divided sharply. Electrocautery was used for hemostasis. A medial parapatellar arthrotomy was performed. The medial soft tissues to include the superficial and deep portions of the medial collateral ligament were elevated subperiosteally. The patella was everted. A portion of the retropatellar fat pad was excised sharply. The anterior cruciate ligament was sacrificed. Blunt retractors were placed. A starting hole was made in the distal femur 1 cm anterior to the posterior cruciate ligament origin. I did remove the 3 distal screws from the lateral plate to accommodate the alignment guide and cutting block. An intramedullary femoral guide was then inserted planning on 5 valgus distal cut with 9 mm distal resection. The cutting block was pinned in place. The distal cut was then made. The posterior referencing sizing guide was utilized. I felt size 4 narrow was most appropriate. 3 of external rotation was built into the system and verified off the trans-epicondylar axis and the posterior condyles. The cutting block was pinned in place. The anterior, posterior, and chamfer cuts then made. Bone fragments were removed. The intercondylar guide was placed and the notch cut was made with a sagittal saw. The bone block was removed in one fragment. The trial component was then placed. There is good anterior to posterior and medial to lateral fit. The distal peg holes were drilled. The anterior aspect of the distal lateral plate was prominent in the patellofemoral space therefore I resected a portion of this with a jose cutting saw. The trial component was removed. Attention was then paid towards preparing the proximal tibia. An extra medullary guide was utilized in line with the tibial shaft and second metatarsal distally. I planned on 7 mm resection from the medial compartment. The cutting block was pinned in place. The proximal tibial cut was then made. The bone was removed in one fragment. The remnants of the medial and lateral menisci were excised at the capsular junction with electrocautery. The tibia sized most appropriately at size 3. The trial femoral and tibial components were placed along with a 12 mm articular surface. I was able to obtain full flexion and extension with internal and external rotation. After several flexion and extension cycles, the tibial rotation was marked with electrocautery line with the medial one third of the tibial tubercle. Attention was then paid towards preparing the patella. A patella reamer was utilized taking stem to 14 mm of bone stock. A good flush cut was made. The patella sized most appropriately 32 mm. The peg holes were drilled. The trial components placed. I had good patellofemoral tracking with no hands technique. The trial components were then removed. The tibia was prepared in the appropriate rotation with appropriate drill and keel punch. The posterior osteophytes were removed with a curved osteotome. The flexion and extension gaps were checked and felt to be symmetric at 12 mm. A trial components were then removed. The bony surfaces were prepared with pulsatile lavage and dried. The tibial component was then cemented place was fully seated. Excess cement was removed. The femoral component cemented place and was fully seated. Excess cement was removed. The trial 12 mm articular surface was placed and the knee was put in full extension. The patella component was cemented place. After the cement had sufficiently hardened, the knee was again taken through a range of motion. Again I was able to obtain full flexion and extension with varus and valgus stress. The trial 12 mm articular surface was removed and the final one inserted. This was fully seated. Care was taken to avoid any soft tissue interposition. Pulsatile lavage was again utilized. The medial parapatellar arthrotomy was closed with #2 Ethibond suture. The tourniquet was deflated with approximately 75 minutes total tourniquet time. Final hemostasis was obtained with the cautery. There was minimal bleeding therefore a deep drain was not placed. The subcutaneous tissues were reapproximated with interrupted 2-0 Vicryl sutures. The skin was reapproximated with 3-0 subcuticular strata fix suture. Skin tape and adhesive was applied. A sterile dressing was applied. The patient was awoken from sedation and transferred to recovery room in good condition. Blood loss was estimated at 50 mL. No complications were incurred. Sponge and needle counts were correct at the end of the case. Andi BUTT assisted during the major components of this case to include exposure, bone resection, implantation, and closure.
[2022-08-27] MEDS ORDERED: ROPIVACAINE 1,100 MG, SODIUM CHLORIDE 0.9% 500 ML 330 ML, EMPTY PAIN BALL 1 EACH MISCELLANE PRN ×2 (10:16)
--- NOTE | 2022-08-27 10:41 | XR ---
EXAMINATION TYPE: XR knee limited LT DATE OF EXAM: 08/27/2022 CLINICAL HISTORY: Postoperative evaluation Two views of the left knee are submitted. Identified are changes of total knee arthroplasty with fem oral and tibial components appearing well seated. There is a fixation plate and screws traversing th e lateral aspect of the femur. Solid fusion noted. Postsurgical soft tissue changes are noted. Align ment is anatomic.
[2022-08-27] MEDS ORDERED: diphenhydrAMINE 50 MG/ML 1 ML VIAL IVP ONE (11:37)
--- NOTE | 2022-08-27 13:09 | P.ANPRN ---
Procedure Note - Anesthesia - Nerve Block Performed Left Adductor Canal Infusion Time Out Performed: Yes Date of Procedure: 08/27/22 Procedure Start Time: 07:07 Procedure Stop Time: 07:16 Location of Patient: PreOp Indication: Acute Post-Operative Pain, Requested by Surgeon Sedation Type: Sedate with meaningful contact maintained Preparation: Sterile Prep, Sterile Dressing Position: Supine Catheter: Indwelling Needle Types: Pajunk Needle Gauge: 21 Ultrasound used to visualize needle placement: Yes Ultrasound used to observe medication spread: Yes Blood Aspirated: No Pain Paresthesia on Injection Noted: No Resistance on Injection: Normal Image Stored and Saved: Yes Events: Uneventful and Well Tolerated (Ropivacaine 0.5% 20 mL plus dexamethasone 4 mg)
--- NOTE | 2022-08-27 13:10 | P.ANPRN ---
Procedure Note - Anesthesia - Nerve Block Performed Left iPack Single Time Out Performed: Yes Date of Procedure: 08/27/22 Procedure Start Time: 07:17 Procedure Stop Time: :21 Location of Patient: PreOp Indication: Acute Post-Operative Pain, Requested by Surgeon Sedation Type: Sedate with meaningful contact maintained Preparation: Sterile Prep Position: Supine Needle Types: Pajunk Needle Gauge: 21 Ultrasound used to visualize needle placement: Yes Ultrasound used to observe medication spread: Yes Blood Aspirated: No Pain Paresthesia on Injection Noted: No Resistance on Injection: Normal Image Stored and Saved: Yes Events: Uneventful and Well Tolerated (Ropivacaine 0.5% 20 mL plus dexamethasone 4 mg)
[2022-08-27] MEDS ORDERED: ONDANSETRON 4 MG/2 ML VIAL IVP PRN (15:54)
--- NOTE | 2022-08-27 16:47 | P.CONS ---
History of Present Illness - Reason for Consult Consult date: 08/27/22 - History of Present Illness Patient is a 81-year-old female with history of paroxysmal atrial fibrillation on anticoagulation presenting for elective left total knee arthroplasty. [facility] physicians has been consulted for medical management. Patient currently denies any chest pain, shortness of breath, abdominal pain, nausea, vomiting, diarrhea, constipation, or urinary complaints. She has been able to ambulate with some assistance postoperatively. Currently patient is afebrile, pulse 69, respiratory rate 14, blood pressure 144/72, saturating at 95% on room air. Pertinent positives and negatives as discussed in HPI, a complete review of systems was performed and all other systems are negative. Patient seen and examined at bedside. Vital signs reviewed General: nontoxic, no distress, appears at stated age Derm: warm, dry, left knee dressing dry, intact, clean Head: atraumatic, normocephalic, symmetric Eyes: EOMI, no lid lag, anicteric sclera, pupils equal round reactive to light ENT: Nose and ears atraumatic Neck: No thyromegaly, supple Mouth: no lip lesion, mucus membranes moist Cardiovascular: S1S2 reg, no murmur, no edema Lungs: clear to auscultation bilateral, no rhonchi, no rales, no wheeze, no accessory muscle use Abdominal: soft, nontender to palpation, no guarding, no appreciable organomegaly Ext: no gross muscle atrophy, muscle strength muscle strength 5 out of 5 in all 4 extremities, no contractures Neuro: CN II-XII grossly intact Psych: Alert, oriented, appropriate affect Assessment/Plan: Paroxysmal atrial fibrillation Status post left total knee arthroplasty -Restarted home Coreg 6.25 2 times a day, continue Eliquis 2.5 mg twice a day -Patient currently on oral Spraggs, and IV Dilaudid for pain control -DVT prophylaxis with Eliquis -PT/OT Thank you for allowing us to participate in the care of this pleasant patient. Do not hesitate to contact us with questions. Someone can be reached from the [facility] hospitalist group all hours of the day at [phone] or via [employer]. Past Medical History Past Medical History: Atrial Fibrillation, Cancer, GERD/Reflux, Hyperlipidemia, Hypertension, Osteoarthritis (OA) Additional Past Medical History / Comment(s): Hx right breast cancer 10 yrs ago. Hx Migraines when younger, none now. bronchiectasis History of Any Multi-Drug Resistant Organisms: None Reported Past Surgical History: Breast Surgery, Section, Joint Replacement, Orthopedic Surgery Additional Past Surgical History / Comment(s): Left torn menicus repair, bilateral bunion surgeries, right breast lumpectomy, colonoscopy, right knee arthroscopy, right knee replacement. Previous left distal femoral fracture fixation. Past Anesthesia/Blood Transfusion Reactions: Postoperative Nausea & Vomiting (PONV) Past Psychological History: No Psychological Hx Reported Smoking Status: Never smoker Past Alcohol Use History: None Reported Past Drug Use History: None Reported - Past Family History Mother Family Medical History: Cancer Additional Family Medical History / Comment(s): Colon cancer. Medications and Allergies Home Medications Medication Instructions Recorded Confirmed Type Multivit with Calcium,Iron,Min 1 tab PO DAILY 04/13/16 08/27/22 History [Women's Daily Multivitamin] Krill Oil 500 mg PO DAILY 12/29/20 08/27/22 History Lysine [l-Lysine] 500 mg PO DAILY 03/19/21 08/27/22 History Turmeric Root Extract [Turmeric] 500 mg PO DAILY 03/19/21 08/27/22 History Apixaban [Eliquis] 2.5 mg PO BID 08/23/22 08/27/22 History Garlic Extract [Garlic] 2,400 mg PO BID 08/23/22 08/27/22 History Magnesium 250 mg PO DAILY 08/23/22 08/27/22 History carvediloL [Coreg] 6.25 mg PO BID 08/23/22 08/27/22 History Allergies Allergy/AdvReac Type Severity Reaction Status Date / Time oxycodone [From OxyContin] AdvReac Nausea & Verified 08/27/22 06:45 Vomiting Physical Exam Vitals: Vital Signs Temp Pulse Pulse Resp BP BP Pulse Ox 08/27/22 14:51 97.8 F 69 14 144/72 95 08/27/22 14:00 68 16 166/72 98 08/27/22 13:30 67 16 154/72 98 08/27/22 13:00 69 16 151/70 98 08/27/22 12:30 65 16 178/77 99 08/27/22 12:21 66 16 166/75 98 08/27/22 12:00 66 16 143/60 98 08/27/22 11:45 66 16 171/74 98 08/27/22 11:30 70 16 180/84 98 08/27/22 11:15 66 16 160/73 99 08/27/22 11:00 66 16 160/72 99 08/27/22 10:52 67 16 170/73 99 08/27/22 10:37 70 16 156/64 99 08/27/22 10:22 69 16 164/75 99 08/27/22 10:07 96.8 F L 83 16 189/87 99 08/27/22 07:21 73 16 175/81 100 08/27/22 06:30 97.7 F 74 18 172/89 97 Intake and Output 08/27/22 08/27/22 08/27/22 06:59 14:59 22:59 Intake Total 200 1451 Output Total 450 Balance 200 1001 Intake: IV 200 1451 Output: Urine 400 Estimated Blood Loss 50 Other: # Voids 2 Weight 53.6 kg 53.6 kg
[2022-08-27] MEDS: HYDROcodone/APAP 5-325MG 1 EACH TAB PO PRN (18:51)
[2022-08-27] MEDS: carvediloL 6.25 MG TAB PO SCH (20:53)
[2022-08-27] MEDS: APIXABAN 2.5 MG TABLET PO SCH (20:53)
[2022-08-27] MEDS ORDERED: SENNOSIDES-DOCUSATE SODIUM 1 EACH TAB PO SCH (21:00)
[2022-08-28] MEDS: HYDROcodone/APAP 5-325MG 1 EACH TAB PO PRN (05:45)
[2022-08-28] MEDS: LACTATED RINGERS 1,000 ML IV SCH (07:03)
--- NOTE | 2022-08-28 07:38 | P.PN ---
Progress Note - Text Progress Note Date: 08/28/22 Postoperative day # 1 status post total knee arthroplasty, and adductor canal catheter placed for postoperative analgesia, currently at ropivacaine 0.2% 8 mL per hour and continuous infusion, visual analogue scale is 3/10, patient using oral pain medication for breakthrough pain. Assessment and plan= Acute postoperative pain, adductor canal catheter for pain control, pain is well controlled we'll continue the same management.
[2022-08-28] MEDS ORDERED: MAGNESIUM OXIDE 400 MG TAB PO SCH (09:00)
[2022-08-28] MEDS ORDERED: MULTIVITAMINS, THERA 1 EACH TAB PO SCH (09:00)
[2022-08-28 09:10] VITALS: BP 145/72; PULSE 78; RESP 20; TEMP 98.4
[2022-08-28] MEDS: APIXABAN 2.5 MG TABLET PO SCH (09:16)
[2022-08-28] MEDS: carvediloL 6.25 MG TAB PO SCH (09:16)
[2022-08-28 09:17] LABS: Basophils % (A) 0 %; Eosinophils % (A) 0 %; HCT 37.1 % (34.0-46.0); Lymphocytes # (A) 0.8 k/uL (1.0-4.8); Lymphocytes % (A) 13 %; MCH 31.7 pg (25.0-35.0); MCHC 32.4 g/dL (31.0-37.0); MCV 97.8 fL (80.0-100.0); Mean Platelet Volume 7.6; Monocytes # (A) 0.3 k/uL (0-1.0); Monocytes % (A) 5 %; Neutrophils # (A) 5.1 k/uL (1.3-7.7); Neutrophils % (A) 81 %; Platelet Count 214 k/uL (150-450); RBC 3.79 m/uL (3.80-5.40); RDW 13.4 % (11.5-15.5); WBC 6.3 k/uL (3.8-10.6)
--- NOTE | 2022-08-28 11:50 | P.DS ---
Providers Date of admission: 08/27/2022 Expected date of discharge: 08/28/22 Attending physician: Bucky Abad Consults: 08/27/22 09:51 Consult Physician Routine Consulting Provider: Kervin Rivera Reason/Comments: medical management s/p left total knee arthroplasty Do you want consulting provider notified?: Already Contacted Primary care physician: Kervin Rivera Hospital Course: Date of admission: 08/27/2022 Date of discharge: 08/28/2022 Admission diagnosis: Left knee osteoarthritis Discharge diagnosis: same Attending physician: Dr. Abad Surgical procedures: Left total knee arthroplasty Brief history: Patient is a 81-year-old female with a history of progressive primary left knee osteoarthritis. At this point patient has failed conservative treatment measures and has opted to proceed with a elective left total knee arthroplasty. Hospital course: Details of patient's surgery can be found in operative report. Patient tolerated the procedure well and was subsequently transported to orthopedic floor. Patient's orthopeidc and medical care was provided daily. Patient had daily laboratory tests performed for evaluation of overall blood counts. Patient had daily physical therapy to include strengthening range of motion as well as education with walker ambulation. Patient was treated with eliquis for their postoperative DVT prophylaxis during their inpatient stay. Patient was noted to have a relatively uneventful postoperative course. Patient reported satisfactory pain control with oral pain medications by postoperative day 1. Patient showed satisfactory progress with physical therapy. Patient moved steadily through the program and had no difficulty meeting the goals by postoperative day 1. Given patient's otherwise satisfactory course and having met physical therapy goals, plan is to discharge patient home with health services on postoperative day 1. Discharge condition/disposition: Patient will be discharged home with health services in stable condition. Discharge medications: Instructions are given on resumption of patient's normal daily medications per primary care recommendation, in addition patient will be prescribed [place]; senna; continue eliquis at home. Discharge instructions: 1. Wound care and infection precautions, keep incision dry and covered while showering, no lotions, creams, moisturizers. No soaking, tubs, pools, hottubs. Do not scrub over the incision. 2. Weight-bear as tolerated with walker / cane until follow-up. 3. Ice and elevate when necessary. Do not exceed 20 minutes per hour with ice pack. 4. Utilize compression sleeve until seen at first follow up appointment. 5. Visiting nursing care. 6. Home physical therapy including home CPM. 7. Pain meds and anticoagulants per prescription. 8. Pain medication has potential to cause constipation. Increase oral fluid and fiber intake. Contact primary care provider if you have not had a bowel movement within 48 hours after discharge 9. No anti-inflammatory medication until discussed at first post operative visit, this including Motrin, Aleve, Mobic, Diclofenac. 10. Follow up in office at 2 weeks postop with Jayce Villanueva PA-C / Andi Berg PA-C 11. Follow up with your primary care doctor 7-10 days after discharge. 12. Contact [facility] with any questions, . Keep incision clean, dry, intact. While showering, cover fusion tape with Saran wrap. Keep fusion tape on until follow-up appointment in office in 2 weeks. Medications: [place]; senna; continue eliquis at home. Assessment: Left knee osteoarthritis Procedures: Left total knee arthroplasty Patient Condition at Discharge: Good Plan - Discharge Summary Discharge Rx Participant: No New Discharge Prescriptions: New HYDROcodone/APAP 5-325MG [[place] 5-325] 1 tab PO Q6HR PRN #36 tab PRN Reason: Pain Sennosides-Docusate Sodium [Senokot-S] 2 each PO HS tab Continue Multivit with Calcium,Iron,Min [Women's Daily Multivitamin] 1 tab PO DAILY Krill Oil 500 mg PO DAILY Turmeric Root Extract [Turmeric] 500 mg PO DAILY Magnesium 250 mg PO DAILY Apixaban [Eliquis] 2.5 mg PO BID Lysine [l-Lysine] 500 mg PO DAILY Garlic Extract [Garlic] 2,400 mg PO BID carvediloL [Coreg] 6.25 mg PO BID Discharge Medication List Multivit with Calcium,Iron,Min [Women's Daily Multivitamin] 1 tab PO DAILY 04/13/16 [History] Krill Oil 500 mg PO DAILY 12/29/20 [History] Lysine [l-Lysine] 500 mg PO DAILY 03/19/21 [History] Turmeric Root Extract [Turmeric] 500 mg PO DAILY 03/19/21 [History] Apixaban [Eliquis] 2.5 mg PO BID 08/23/22 [History] Garlic Extract [Garlic] 2,400 mg PO BID 08/23/22 [History] Magnesium 250 mg PO DAILY 08/23/22 [History] carvediloL [Coreg] 6.25 mg PO BID 08/23/22 [History] HYDROcodone/APAP 5-325MG [[place] 5-325] 1 tab PO Q6HR PRN #36 tab 08/28/22 [Rx] Sennosides-Docusate Sodium [Senokot-S] 2 each PO HS tab 08/28/22 [Rx] Follow up Appointment(s)/Referral(s): [facility], [NON-STAFF] - As Needed Andi Berg, MARIA DE JESUS [PHYSICIAN TENTERING MACHINE OFF BEARER] - 2 Weeks (Keep appt scheduled pre-op) Kervin Rivera DO [Primary Care Provider] - 09/06/22 10:20 am (With Stephanie Collins NP) Patient Instructions/Handouts: *[facility] - ([facility]) Arthroscopic Knee Post-Op Instructions, *[facility] - On-Q Pain Pump Discharge Instructions Activity/Diet/Wound Care/Special Instructions: Discharge instructions: 1. Wound care and infection precautions, keep incision dry and covered while showering, no lotions, creams, moisturizers. No soaking, tubs, pools, hottubs. Do not scrub over the incision. 2. Weight-bear as tolerated with walker / cane until follow-up. 3. Ice and elevate when necessary. Do not exceed 20 minutes per hour with ice pack. 4. Utilize compression sleeve until seen at first follow up appointment. 5. Visiting nursing care. 6. Home physical therapy including home CPM. 7. Pain meds and anticoagulants per prescription. 8. Pain medication has potential to cause constipation. Increase oral fluid and fiber intake. Contact primary care provider if you have not had a bowel movement within 48 hours after discharge 9. No anti-inflammatory medication until discussed at first post operative visit, this including Motrin, Aleve, Mobic, Diclofenac. 10. Follow up in office at 2 weeks postop with Jayce Villanueva PA-C / Andi Berg PA-C 11. Follow up with your primary care doctor 7-10 days after discharge. 12. Contact [facility] with any questions, . Keep incision clean, dry, intact. While showering, cover fusion tape with Saran wrap. Keep fusion tape on until follow-up appointment in office in 2 weeks. Medications: [place]; senna; continue eliquis at home. Discharge Disposition: HOME WITH HOME HEALTH SERVICES
--- NOTE | 2022-08-28 12:57 | P.PN ---
Subjective Progress Note Date: 08/28/22 Principal diagnosis: Left knee osteoarthritis Patient seen at bedside this morning sitting up in chair with legs elevated. Patient says she did work with physical therapy earlier this morning and walked down the schneider and up-and-down steps. Patient says she has urinated several times since surgery yesterday. Patient says she is having some knee pain at this time mostly at the front. Patient denies radiation pain. Patient says she does have a walker/cane at home. Patient is looking forward to going home later today. Patient denies chest pain, fever, shortness breath, nausea, vomiting, change in vision, loss pulse control. Objective - Vital Signs Vital signs: Vital Signs Temp 98.4 F 08/28/22 08:00 Pulse 78 08/28/22 08:00 Resp 20 08/28/22 08:00 BP 145/72 08/28/22 08:00 Pulse Ox 96 08/28/22 08:00 FiO2 Intake & Output 08/27/22 08/28/22 08/28/22 18:59 06:59 18:59 Intake Total 1451 Output Total 450 Balance 1001 Weight 53.6 kg Intake: IV 1451 Output: Urine 400 Estimated Blood Loss 50 Other: Voiding Method Toilet # Voids 2 4 - Exam Left knee: Incision is clean, dry, and intact. The exofin fusion tape is in good condition. There is minimal soft tissue swelling and ecchymosis surrounding the medial and lateral aspects of the incision. Calf is soft, no tenderness with palpation. Plantar flexion, dorsiflexion, EHL, FHL are intact. Sensory exam to light touch throughout the extremity is intact, dorsal pedis pulses 2+. - Labs CBC & Chem 7: 08/28/22 08:17 Labs: Abnormal Lab Results - Last 24 Hours (Table) 08/28/22 Range/Units 08:17 RBC 3.79 L (3.80-5.40) m/uL Lymphocytes # 0.8 L (1.0-4.8) k/uL Assessment and Plan Assessment: 1. Left knee osteoarthritis - Postop day 1 status post left total knee arthroplasty Plan: 1. Left knee osteoarthritis - left total knee arthroplasty performed yesterday, 08/27/2022. Patient stable at bedside this morning. Discharge home today with health services. 2. Appreciate medical management 3. Pain management - [place] 4. GI prophylaxis - senna 5. DVT prophylaxis - eliquis 6. PT/OT - weightbearing as tolerated with walker 7. Encourage incentive spirometer use 8. Discharge planning - home with health services today. Time with Patient: Less than 30
--- NOTE | 2022-08-28 16:59 | P.PN ---
Subjective Progress Note Date: 08/28/22 This is an 81-year-old female status post elective left total knee arthroplasty. Dr. Rivera/PCP taking over the medical consult starting today as the wrong group was consulted, initially. Ambulating with in room to the bathroom, tolerating exertion well. Pain mild ,controlled. Good diet intake with no nausea vomiting or diarrhea. Passing flatus. Denies chest pain, palpitations or shortness of breath. Afebrile. Maintaining O2 sats in the 90s on room air, hemodynamically stable. Objective - Vital Signs Vital signs: Vital Signs Temp 98.4 F 08/28/22 08:00 Pulse 78 08/28/22 08:00 Resp 20 08/28/22 08:00 BP 145/72 08/28/22 08:00 Pulse Ox 96 08/28/22 08:00 FiO2 Intake & Output 08/27/22 08/28/22 08/28/22 18:59 06:59 18:59 Intake Total 1451 118 Output Total 450 Balance 1001 118 Weight 53.6 kg Intake: IV 1451 Oral 118 Output: Urine 400 Estimated Blood Loss 50 Other: Voiding Method Toilet # Voids 2 4 - Exam PHYSICAL EXAM: VITAL SIGNS: As above GENERAL: Sitting up in bed, no acute distress HEENT: Conjunctivae normal. eyes normal. MMM. NECK: Supple, No JVD. CARDIOVASCULAR: S1, S2 regular. No murmur RESPIRATION: Unlabored, Breath sounds diminished in the bases. No rhonchi or crackles. No bronchial breathing. ABDOMEN: Soft, nondistended, nontender . No guarding. no masses palpable.Bowel sounds heard. LEGS: Left lower extremity with minimal edema, ice pack on,no calf tenderness,positive DP pulse PSYCHIATRY: Alert and oriented X3, mood and affect normal. NERVOUS SYSTEM: Cranial N 2-12 grossly normal. Moves all 4 limbs. No focal deficits. Strength and sensation grossly intact. Skin: Warm and dry, no rash - Labs CBC & Chem 7: 08/28/22 08:17 Labs: Abnormal Lab Results - Last 24 Hours (Table) 08/28/22 Range/Units 08:17 RBC 3.79 L (3.80-5.40) m/uL Lymphocytes # 0.8 L (1.0-4.8) k/uL Assessment and Plan Assessment: Left knee osteoarthritis, Status post left total knee arthroplasty Paroximal atrial fibrillation Gastroesophageal reflux disease Hypertension Hyperlipidemia Plan: Continue on current medication regime ,monitoring and symptomatic t reatment. PT/OT- states has not done the stairs yet. Pain management/DVT prophylaxis as per primary. Aggressive pulmonary toileting with incentive spirometer reinforced. Discharge planning in progress for today. Follow-up with PCP in 2 weeks. The impression and plan of care has been dictated as directed. : I performed a history and examination of this patient, discussed the same with the dictator. I agree with the dictator's note ,documented as a scribe. Any additional findings or plans will be noted.
== END 2022-08-28 12:45 | disposition home health service (06) ==
LOC: OR 05:51 → 4SSUR 09:56 → OR 08-28 12:45
PROVIDERS: ATTEND Orthopaedic Surgery
DX: M17.12 Unilateral primary osteoarthritis, left knee (principal); T84.89XA Other specified complication of internal orthopedic prosthetic devices, implants and grafts, initial encounter; Z87.81 Personal history of (healed) traumatic fracture; M81.0 Age-related osteoporosis without current pathological fracture; I48.91 Unspecified atrial fibrillation; J44.9 Chronic obstructive pulmonary disease, unspecified; I10 Essential (primary) hypertension; E78.5 Hyperlipidemia, unspecified; Z85.3 Personal history of malignant neoplasm of breast; G43.909 Migraine, unspecified, not intractable, without status migrainosus; Z96.651 Presence of right artificial knee joint; Z98.890 Other specified postprocedural states; Z80.0 Family history of malignant neoplasm of digestive organs; Z79.01 Long term (current) use of anticoagulants; Z88.5 Allergy status to narcotic agent
CPT/HCPCS: 27447; 97161; 64999; 64448; 76942; 88305; 85025; 88311; 73560; C1713 ×2; C1776; C1751; J2250; J0330; J0360; J1200; J1100; J2710; J0690 ×2; J2405; J3010; J1170 ×2; J2795; J2704; J1790; J2001

== ENCOUNTER → 2022-12-20 | Outpatient (CLI) | payer MEDICARE ==
--- NOTE | 2022-12-20 13:50 | MM ---
Reason for Exam: Hx of breast cancer, conservation therapy. Last screening mammogram was performed 12 month(s) ago. Patient History: Menarche at age 15. First Full-Term at age 19. Postmenopausal. Breast cancer, right, age 65. Previous chest radiation therapy at age 64. Estrogen for 1 year, 6 months, from age 57 until age 58. Progesterone for 1 year, 6 months, from age 57 until age 58. Hormonal Contraceptives for 6 months until age 21. Tamoxifen for 5 years from age 65 until age 70. 2017, Benign Excisional Biopsy on the right side. 01/29/2006, Malignant Core Biopsy on the right side. 2005, Radiation Therapy on the right side. Maternal grandmother had breast cancer, age 70. Tissue Density: The breast tissue is heterogeneously dense. This may lower the sensitivity of mammography. Findings: Analyzed By CAD. Postoperative distortion upper outer quadrant right breast from prior lumpectomy. No evidence for recurrent or residual mass within either breast. Benign calcifications seen bilaterally. Overall Assessment: Benign, BI-RAD 2 Management: Screening Mammogram of both breasts in 1 year. . Results were given to the patient verbally at the time of exam. Patient should continue monthly self-breast exams. A clinical breast exam by your physician is recommended on an annual basis. This exam should not preclude additional follow-up of suspicious palpable abnormalities. Note on Ruthann scores and lifetime risk: 1. A Ruthann score greater than 3% is considered moderate risk. If this is the case, consider specialist referral to assess eligibility for a risk reducing agent. 2. If overall lifetime risk for the development of breast cancer is 20% or higher, the patient may qualify for future screening with alternating mammogram and breast MRI. Electronically signed and approved by: Ceferino Anderson M.D. Radiologis
== END | disposition home or self-care (01) ==
LOC: RADMAMWWP 13:12
PROVIDERS: ATTEND Internal Medicine Hematology & Oncology
DX: C50.911 Malignant neoplasm of unspecified site of right female breast (principal); R63.4 Abnormal weight loss; D64.9 Anemia, unspecified; Z80.3 Family history of malignant neoplasm of breast; Z78.0 Asymptomatic menopausal state
CPT/HCPCS: 77066; G0279; 77062

== ENCOUNTER → 2023-03-05 | Outpatient (CLI) | payer MEDICARE ==
--- NOTE | 2023-03-06 09:54 | CA ---
Transthoracic Echo Report Name: Lynne Mckenzie Age: 82 Gender: F : 1940 Exam Date: 03/05/2023 15:29 Exam Location: [place] [facility] [facility] Ht (in): 62 Wt (lb): 115 Ordering Physician: Kervin Rivera DO Attending/Referring Phys: [id number] Outside Sales Representative Anju Donnelly RDCS Procedure CPT: Indications: I48.91 a fib Cardiac Hx: Technical Quality: Fair Contrast 1: Total Dose (mL): Contrast 2: Total Dose (mL): MEASUREMENTS (Male / Female) Normal Values 2D ECHO LV Diastolic Diameter PLAX 4.1 cm 4.2 - 5.9 / 3.9 - 5.3 cm LV Systolic Diameter PLAX 2.7 cm IVS Diastolic Thickness 0.9 cm 0.6 - 1.0 / 0.6 - 0.9 cm LVPW Diastolic Thickness 1.2 cm 0.6 - 1.0 / 0.6 - 0.9 cm LV Relative Wall Thickness 0.5 RV Internal Dim ED PLAX 3.0 cm M-MODE Aortic Root Diameter MM 2.9 cm LA Systolic Diameter MM 4.4 cm LA Ao Ratio MM 1.5 AV Cusp Separation MM 1.9 cm DOPPLER AV Peak Velocity 147.3 cm/s AV Peak Gradient 8.7 mmHg AV Mean Velocity 96.5 cm/s AV Mean Gradient 4.1 mmHg AV Velocity Time Integral 27.9 cm AI Peak Velocity 401.3 cm/s AI Peak Gradient 64.4 mmHg AI Pressure Half Time 624.6 ms LVOT Peak Velocity 96.9 cm/s LVOT Peak Gradient 3.8 mmHg LVOT Velocity Time Integral 17.6 cm MV Area PHT 4.5 cm??? Mitral E Point Velocity 95.6 cm/s Mitral A Point Velocity 87.1 cm/s Mitral E to A Ratio 1.1 MV Deceleration Time 168.7 ms MV E' Velocity 5.6 cm/s Mitral E to MV E' Ratio 17.0 TR Peak Velocity 278.1 cm/s TR Peak Gradient 30.9 mmHg Right Ventricular Systolic Press 35.5 mmHg FINDINGS Left Ventricle Mildly increased left ventricular wall thickness. Left ventricular cavity size normal. Normal left ventricular systolic function with no obvious regional wall motion abnormalities. Left ventricular ejection fraction is estimated at 55-60 %. Right Ventricle Normal right ventricular size and function. Mild pulmonary hypertension. Right Atrium Normal right atrial size. Left Atrium Mild to moderate increased left atrial area. Mitral Valve Structurally normal mitral valve. Mitral valve thickened. Mild mitral annular calcification. Moderate mitral regurgitation. Aortic Valve Trileaflet aortic valve. No aortic stenosis. Mild aortic regurgitation. Aortic valve sclerosis. Tricuspid Valve Structurally normal tricuspid valve. Mild tricuspid regurgitation. Pulmonic Valve Structurally normal pulmonic valve. Mild pulmonic regurgitation. Pericardium No pericardial effusion. Aorta Normal size aortic root and proximal ascending aorta. CONCLUSIONS Normal LV size and systolic function left atrial enlargement Previewed by: Dr. Chandrakant Smith MD (Electronically Signed) Final Date: 06 March 2023 09:53
== END | disposition home or self-care (01) ==
LOC: RADECHMAIN 15:19
PROVIDERS: ATTEND Family Medicine
DX: I48.91 Unspecified atrial fibrillation (principal)
CPT/HCPCS: 93306

== ENCOUNTER 2023-07-29 09:50 | Day surgery (SDC) | payer MEDICARE ==
[~2023-07-29 09:50] MED LIST changes: -ACETAMINOPHEN TAB 500 MG TAB PO PRN; +ALPRAZolam 0.25 MG TAB PO PRN; +ALPRAZolam 0.5 MG TAB PO PRN; +ASPIRIN 325 MG TAB PO STA; -MELOXICAM 7.5 MG TAB PO PRN; +NITROGLYCERIN SL TABS 0.4 MG TAB SUBLINGUAL PRN; -TRANEXAMIC ACID IN NACL,ISO-OS 1,000 MG in SALINE 1 100ML.BAG IVPB PRN
[2023-07-29] MEDS: SODIUM CHLORIDE 0.9% 1,000 ML in EMPTY BAG 1 BAG IV SCH (10:18)
[2023-07-29 10:23] VITALS: RESP 18; TEMP 97.6
[2023-07-29] MEDS ORDERED: VERAPAMIL 2.5 MG/ML 2 ML AMP ONE ×2 (11:54→12:42)
[2023-07-29] MEDS ORDERED: LIDOCAINE 1% INJ 10MG/ML (20 ML MDV) ONE (11:54)
[2023-07-29] MEDS ORDERED: fentaNYL (PF) 50 MCG/ML 2 ML AMP ONE (12:09)
[2023-07-29] MEDS: BENZOCAINE SPRAY 1 CAN TOPICAL ONE (12:19)
[2023-07-29] MEDS: MIDAZOLAM 2 MG/2 ML VIAL IVP ONE ×2 (12:19→12:41)
[2023-07-29] MEDS: fentaNYL (PF) 50 MCG/ML 2 ML AMP IVP ONE (12:20)
[2023-07-29] MEDS: IV FLUID CONTINUATION 950 ML IV ONE (12:26)
[2023-07-29] MEDS: LIDOCAINE 1% INJ 10MG/ML (30 ML VIAL-PF) SQ ONE (12:41)
[2023-07-29] MEDS: VERAPAMIL SYRINGE (5 MG/10 ML) INTRAARTER ONE (12:41)
[2023-07-29] MEDS: HEPARIN SODIUM 1,000 UN/ML (10ML VL) IVP ONE (13:03)
[2023-07-29 13:08] LABS: O2 Sat Blood Gas 75.3 %
[2023-07-29 13:13] LABS: O2 Sat Blood Gas 76.9 %
[2023-07-29 13:15] LABS: O2 Sat Blood Gas 73.5 %
[2023-07-29] MEDS: IOPAMIDOL-300 100ML BTL INJ ONE (13:23)
[2023-07-29 13:27] LABS: O2 Sat Blood Gas 97.4 %
[2023-07-29] MEDS ORDERED: METOPROLOL SUCCINATE (ER) 50 MG TAB.ER.24H PO STA (15:04)
--- NOTE | 2023-07-29 17:35 | P.TEE ---
Date of Procedure: 07/29/23 Description of Procedure(s): Procedure performed: 1. Transesophageal Echocardiogram with color flow doppler, pulsed wave doppler and continuous wave doppler 2. Moderate conscious sedation. Sedation time [20] mins. 3. Bubble Study Indications: Moderate to severe aortic stenosis and moderate to severe mitral regurgitation Consent: I have discussed the risks, benefits and alternative therapies for the above-mentioned procedure. The patient has indicated understanding and acceptance of the risks of the procedure. Signed consent was obtained and was placed in the paper chart. Procedural Steps: Timeout was performed in usual fashion. Patient's heart rate, blood pressure, oxygen saturation and ECG were monitored. Benzocaine was sprayed liberally in the back of the throat. Bite block was placed between the jaw. 2 mg of Versed and 50 mcg of Fentanyl were administered intravenously. After achieving appropriate moderate conscious sedation, ZACK probe was attempted to be advanced but could not be passed beyond pharynx due to discrepancy between the probe size and patient's pharyngeal cavity size. The probe was not pushed further. The procedure was terminated. Total sedation time 10 mins. Complications: none CONCLUSION: Could not complete ZACK because of discrepancy between probe size and patient's pharyngeal cavity size. Arthur Saleem MD, RPVI, FACC Thank you for allowing [facility] to participate in this patient's care. Feel free to reach out in case of any followup questions.
[2023-07-29 17:41] VITALS: BP 160/72; PULSE 81
--- NOTE | 2023-07-29 17:55 | P.CARDCATH ---
Date of Procedure: 07/29/23 Description of Procedure: DIAGNOSTIC CORONARY ANGIOGRAPHY, RIGHT and LEFT HEART CATH REPORT PROCEDURES PERFORMED: Left heart catheterization Right heart catheterization Selective coronary angiography Moderate conscious sedation 53 mins [Ultrasound assisted] Right radial access INDICATION: Recent hospital admission with shortness of breath and NSTEMI. Cardiomyopathy EF of 30 to 35%, moderate aortic stenosis and moderate to severe mitral regurgitation. CONSENT: I have explained the procedural steps of above-mentioned procedures in layman's terms to the patient. I discussed the risks (including but not limited to stroke, emergent vascular or cardiac surgery or ), benefits and alternative therapies for the above-mentioned procedure. I discussed the risks of sedation/analgesia and blood product administration (if indicated). The patient has indicated understanding and acceptance of these risks. Conscious Sedation: Patient's ECG, heart rate, blood pressure, pulse oximetry were monitored throughout the duration of procedure under my direct supervision. 1 mg Versed. Total duration of moderate concious sedation 53 minutes. Before doing the heart catheterization patient was scheduled for a ZACK for which patient received 2 mg of Versed and 50 mg of fentanyl. PROCEDURE: After explaining the risks, benefits and alternatives of the above mentioned procedures in detail to the patient, informed consent was obtained. Patient was taken to the catheterization lab, prepped and draped in usual sterile fashion using universal precuations. Ultrasound was used to identify the radial artery. 1% lidocaine was infiltrated over the right radial artery. A 6-Malawian sheath was placed and secured in the right radial artery using modified Seldinger technique. The sheath was flushed and 5 mg verapamil was administered intra-arterially. Right antecubital vein IV cannula was exchanged over the wire for a 6 [place]awian slender glide sheath using a modified Seldinger technique. The sheath was flushed. A 5 [place]Kevin catheter was advanced through the sheath. Once the tip of the catheter was in the right atrium the tip balloon was inflated. Under fluoroscopy guidance the catheter was advanced to the wedge position. The wedge pressures were obtained. The catheter was pulled back and in the pulmonary artery and the balloon was deflated. Pulmonary artery pressures were obtained samples were obtained for Josefina cardiac output evaluation. Thermodilution study was performed. The balloon was inflated again and catheter tip was withdrawn into the right ventricle. Right ventricular pressures were obtained and oxygen saturation samples were collected. The catheter tip was withdrawn to right atrium and pressures were obtained. Oxygen saturation samples were collected. J tipped wire was advanced under fluoroscopic guidance. Once the wire tip reached aortic root 3000 units of IV heparin was given. Over the wire JR4 diagnostic catheter was advanced. The wire in place the catheter was manipulated to cross the aortic valve and entered into LV under fluoroscopy guidance. The wire was removed and the catheter was flushed. LV pressures were obtained and pullback was performed under fluoroscopy. Catheter was manipulated to selectively engage the right coronary ostium. Right coronary angiography was performed in different angiographic projections. The JR4 diagnostic catheter was exchanged for a JL 4 diagnostic catheter over the J-wire. The wire was removed, catheter was flushed and manipulated under fluoroscopy to selectively engaged the left coronary ostium. Left coronary angioplasty was performed in different angiographic projections. Catheter was removed over the wire. Radial sheath was flushed. The right radial sheath was removed and a TR band was placed with excellent patent hemostasis was achieved. The patient tolerated the procedure well. Kristian martinez was transported back to the post catheterization holding area in stable condition. Angiographic images were reviewed in detail. HEMODYNAMICS: Aortic Pressure: 160/60 mmHg. LV pressure: 185 over mmHg. LVEDP 15 mmHg. Mean gradient across aortic valve was measured at 24 mmHg RA pressure 12/8 mmHg, mean 8 mmHg RV pressure 50/8 mmHg, RVEDP 12 mmHg PA pressure 50/18 mmHg, Mean PA pressure 32 mmHg Wedge 26/33 mmHg, a wave 26 mmHg, V wave 33 mmHg, mean PCW pressure - 21 mmHg Trans pulmonary gradient 10 mmHg Pulmonary resistance 2 WITT Arterial sat 97% RV sat 75% RA sat 77% PA sat 75% Hb 11.6, BSA 1.07 m, Josefina cardiac output 4.5 L/min Josefina cardiac index 4.22 L/min/m Hemodilution cardiac output 3.72 L/min Thermodilution cardiac index 3.48 L/min/m SELECTIVE CORONARY ARTERIOGRAPHY: LEFT MAIN: The left main is a large caliber vessel which bifurcates into the LAD and circumflex. Left main appears angiographically normal. LEFT ANTERIOR DESCENDING CORONARY ARTERY: LAD is a large caliber vessel which wraps around to the apex. Proximal LAD has 20% calcific disease. Proximal LAD gives first diagonal branch which is a small caliber vessel and has 80 to 90% ostial disease, this is not enabled for intervention due to small size vessel. Mid LAD appears angiographically normal. Distal LAD appears angiographically normal. Mid and distal LAD gives small diagonal branches which appears angiographically normal. LEFT CIRCUMFLEX CORONARY ARTERY: It is nondominant vessel. Left circumflex is a moderate caliber vessel. It appears angiographically normal. It gives rise to OM branches which appears in graphically normal. RIGHT CORONARY ARTERY: Dominant vessel. The right coronary artery is a large caliber vessel which gives PDA and PLV branch. It appears angiographically normal. IMPRESSION: Nonischemic cardiomyopathy. Mild proximal LAD disease. 80 to 90% ostial diagonal 1 disease with TERRA 3 flow and is a small vessel not amenable for intervention Moderate aortic stenosis mean gradient 24 mmHg Normal LVEDP. Mildly elevated wedge pressures with elevated V wave measuring at 33 mmHg suggestive of mitral regurgitation Mild pulmonary hypertension, with mean PA pressure measuring at 32 mmHg, likely from mitral regurgitation. Normal RA, RV pressures. PLAN: Aggressive risk factor modification per most recent ACC/AHA guidelines. 100 cc fluids for 4 hours Discharge home in 3 hours Follow-up in the office in 1-2 weeks. Continue GDMT for cardiomyopathy. Repeat TTE in 1 to 2 months to evaluate for mitral regurgitation. Consider pediatric probe for ZACK for mitral valve evaluation. Patient may also benefit from dobutamine stress echo low-dose for aortic stenosis evaluation Performing Physician Arthur Saleem MD, FACC, RPVI Thank you for allowing [facility] to participate in this patient's care. Feel free to reach out in case of any followup questions.
== END 2023-07-29 17:20 | disposition home or self-care (01) ==
LOC: CATHCVL 09:50
PROVIDERS: ATTEND Student in an Organized Health Care Education/Training Program
DX: I48.0 Paroxysmal atrial fibrillation (principal); I08.0 Rheumatic disorders of both mitral and aortic valves; I10 Essential (primary) hypertension; E78.5 Hyperlipidemia, unspecified; J44.9 Chronic obstructive pulmonary disease, unspecified; Z79.51 Long term (current) use of inhaled steroids; Z79.899 Other long term (current) drug therapy
CPT/HCPCS: 93460; 76937; 85018; 82810; C1769 ×3; C1894; C1751; J2250; J2001; J3010; J1644; Q9967

== ENCOUNTER 2023-09-02 06:01 | Day surgery (SDC) | payer MEDICARE ==
[2023-09-02] MEDS ORDERED: LACTATED RINGERS 1,000 ML IV SCH (06:58)
[2023-09-02 07:43] VITALS: RESP 16
[2023-09-02 07:59] LABS: Glucose,Whole Blood 90 mg/dL (70-110)
[2023-09-02] MEDS: SODIUM CHLORIDE 0.9% 1,000 ML IV SCH (08:01)
[2023-09-02] MEDS ORDERED: LIDOCAINE 1% INJ 10MG/ML (20 ML MDV) ONE (08:05)
[2023-09-02] MEDS ORDERED: PROPOFOL 10 MG/ML 20 ML VIAL IV ONE (08:05)
[2023-09-02] MEDS: BENZOCAINE SPRAY 1 CAN TOPICAL ONE (08:06)
[2023-09-02 09:06] VITALS: TEMP 97.9
[2023-09-02 09:37] LABS: Glucose,Whole Blood 90 mg/dL (70-110)
[2023-09-02 09:47] VITALS: BP 164/71; PULSE 67
--- NOTE | 2023-09-02 09:57 | P.TEE ---
Date of Procedure: 09/02/23 Description of Procedure(s): Procedure performed: 1. Transesophageal Echocardiogram with color flow doppler, pulsed wave doppler and continuous wave doppler 2. Sedation by Anesthesia Indications: Moderate aortic stenosis, moderate to severe mitral regurgitation. 82-year-old female presented to [facility] with acute hypoxic respiratory failure. At that time she was in congestive heart failure and atrial fibrillation. She was managed on rate control strategy and she converted out of atrial fibrillation spontaneously. She was managed for congestive heart failure. She had cardiomyopathy with an EF of 30% and her echo showed concerns of possible moderate to severe mitral regurgitation and moderate aortic stenosis with low flow state. For this she was scheduled for an outpatient ZACK. Consent: I have discussed the risks, benefits and alternative therapies for the above-mentioned procedure. The patient has indicated understanding and acceptance of the risks of the procedure. Signed consent was obtained and was placed in the paper chart. Procedural Steps: Timeout was performed in usual fashion. Patient's heart rate, blood pressure, oxygen saturation and ECG were monitored. Benzocaine was sprayed liberally in the back of the throat. Bite block was placed between the jaw. Sedation was provided by anesthesia. Please refer to their note for further details. After achieving appropriate moderate conscious sedation, ZACK probe was advanced without difficulty and without any immediate complications to the esophagus. ZACK study was performed with color flow doppler, pulsed wave doppler and continuous wave doppler. The probe was then removed. Patient tolerated the procedure well. Patient was transferred to the post procedure area in stable and satisfactory condition. Throughout the procedure patient's heart rate, blood pressure, oxygen saturation and ECG were monitored. Complications: none FINDINGS Left Atrium: Severe left atrial dilatation. No evidence of mass or thrombus seen. Evidence of elevated left atrial pressure seen. Left Atrial Appendage: No evidence of thrombus or mass seen in LILIANA Inter atrial septum: Evidence of PFO seen with [id number] flow on color Doppler. Left Ventricle: Mildly reduced global LV systolic function. Right Atrium: Moderate right atrial dilatation. Right Ventricle: Normal global RV size and systolic function Aortic Valve: Structurally normal Tri[place], Normal opening. No evidence of stenosis on color doppler. Mild to moderate aortic central regurgitation. Mitral Valve: Struturally normal. Moderate functional mitral regurgitation. PISA 0.6 cm Aliasing velocity 44 cm/s Mitral regurg Vmax 5.53 m/sec MR VTI 206.5 cm EROA 0.2 cm2 Regurgitant Volume 40 ml/beat. Pulmonic Valve: Not well visualized. Tricuspid Valve: Mild to moderate TR Ascending aorta, Aortic root and Aortic arch: Normal size aortic root and ascending aorta. Mild blood tinged oral secretions seen after ZACK. No problem swallowing after patient woke up. No problems or pain with swallowing CONCLUSION: Moderate functional mitral regurgitation Mild to moderate aortic regurgitation No clear evidence of aortic stenosis Small PFO with [id number] shunting Severe LA dilatation with elevated LA pressures Moderate right atrial dilatation Findings were discussed with family in detail. They were updated about mild blood-tinged oral secretions after ZACK. I advised him to look for any signs of bleeding or any difficulty swallowing after the procedure. Asked him to notify me if in case of any complications. Arthur Saleem MD, RPVI, FACC Thank you for allowing [facility] to participate in this patient's care. Feel free to reach out in case of any followup questions.
== END 2023-09-02 09:55 | disposition home or self-care (01) ==
LOC: OR 06:01
PROVIDERS: ATTEND Student in an Organized Health Care Education/Training Program
DX: I08.0 Rheumatic disorders of both mitral and aortic valves (principal); I48.0 Paroxysmal atrial fibrillation; Q21.12 Patent foramen ovale; J96.01 Acute respiratory failure with hypoxia; I50.9 Heart failure, unspecified; N18.9 Chronic kidney disease, unspecified; I42.0 Dilated cardiomyopathy; I25.2 Old myocardial infarction; Z88.1 Allergy status to other antibiotic agents; Z88.2 Allergy status to sulfonamides; Z79.01 Long term (current) use of anticoagulants; Z79.899 Other long term (current) drug therapy
CPT/HCPCS: 93312; 93320; 93325; J2001; J2704

== ENCOUNTER 2023-09-25 10:41 | Emergency (ER) | payer MEDICARE ==
[2023-09-25 10:53] VITALS: RESP 16; TEMP 97.7
[2023-09-25 11:22] LABS: Basophils % (A) 1 %; Eosinophils # (A) 0.1 k/uL (0-0.7); Eosinophils % (A) 2 %; HCT 41.6 % (34.0-46.0); HGB 13.6 gm/dL (11.4-16.0); Lymphocytes # (A) 0.7 k/uL (1.0-4.8); Lymphocytes % (A) 11 %; MCH 31.5 pg (25.0-35.0); MCHC 32.7 g/dL (31.0-37.0); MCV 96.3 fL (80.0-100.0); Mean Platelet Volume 8.1; Monocytes # (A) 0.3 k/uL (0-1.0); Monocytes % (A) 4 %; Neutrophils # (A) 5.3 k/uL (1.3-7.7); Neutrophils % (A) 82 %; Platelet Count 261 k/uL (150-450); RBC 4.32 m/uL (3.80-5.40); WBC 6.5 k/uL (3.8-10.6)
[2023-09-25 11:37] LABS: INR 0.9 (<1.2); Partial Thromboplastin Time 22.3 sec (22.0-30.0); Prothrombin Time 10.3 sec (10.0-12.5)
--- NOTE | 2023-09-25 11:44 | XR ---
EXAMINATION TYPE: XR chest 2V DATE OF EXAM: 09/25/2023 11:24 AM CLINICAL INDICATION:Female, 82 years old with history of difficulty breathing; [facility] COMPARISON: Chest radiographs from 02/14/2023 TECHNIQUE: XR chest 2V Frontal and lateral views of the chest. FINDINGS: Lungs/Pleura: There is flattening of the diaphragm with increased lucency of the lungs. No evidence o f pneumothorax, pleural effusion or focal consolidation. Pulmonary vascularity: Unremarkable. Heart/mediastinum: Cardiomediastinal silhouette is unremarkable. Musculoskeletal: No acute osseous pathology. IMPRESSION: 1. No acute cardiopulmonary disease process. 2. COPD changes.
--- NOTE | 2023-09-25 12:03 | ED ---
General Adult HPI - General Chief complaint: Shortness of Breath Stated complaint: SOB Time Seen by Provider: 09/25/23 10:50 Source: patient, family, RN notes reviewed, old records reviewed Mode of arrival: ambulatory Limitations: no limitations - History of Present Illness Initial comments: This is an 82-year-old female who presents to the emergency department complaining of shortness of breath. Patient states she went to bed feeling fine she woke up this morning very short of breath. Patient states she has a history of atrial fibrillation congestive heart failure secondary to atrial fibrillation and COPD. Patient states she has not had any cough she denies any fever or chills. Patient denies any chest pain. Patient denies palpitations. Patient denies any abdominal pain patient has nausea vomiting diarrhea. Patient denies lightheadedness or dizziness. - Related Data Home Medications Medication Instructions Recorded Confirmed Apixaban [Eliquis] 2.5 mg PO BID 08/23/22 09/25/23 Aspirin 81 mg PO DAILY 07/24/23 09/25/23 Atorvastatin [Lipitor] 40 mg PO HS 07/24/23 09/25/23 Empagliflozin [Jardiance] 10 mg PO DAILY 07/24/23 09/25/23 Furosemide [Lasix] 20 mg PO DAILY 07/24/23 09/25/23 Metoprolol Succinate (ER) [Toprol 50 mg PO DAILY 07/24/23 09/25/23 Xl] Omeprazole 20 mg PO DAILY 07/24/23 09/25/23 Albuterol Sulfate [Albuterol 1 puff INHALATION RT-Q4H PRN 09/25/23 09/25/23 Sulfate Hfa] Beets 1 tab PO DAILY 09/25/23 09/25/23 Ferrous Sulfate [Feosol] 325 mg PO DAILY 09/25/23 09/25/23 Fluticasone/Vilanterol [Breo 1 puff INHALATION RT-DAILY 09/25/23 09/25/23 Ellipta 100-25 Mcg Inhalr] Krill/[place]-3/Dha/Epa/Lipids 1 cap PO DAILY 09/25/23 09/25/23 [Krill Oil 350 mg Softgel] Magnesium 250 mg PO DAILY 09/25/23 09/25/23 lisinopriL [Zestril] 5 mg PO DAILY 09/25/23 09/25/23 Allergies Allergy/AdvReac Type Severity Reaction Status Date / Time oxycodone [From OxyContin] AdvReac Nausea & Verified 09/25/23 12:13 Vomiting Review of Systems ROS Statement: Those systems with pertinent positive or pertinent negative responses have been documented in the HPI. ROS Other: All systems not noted in ROS Statement are negative. Past Medical History Past Medical History: Atrial Fibrillation, Cancer, COPD, GERD/Reflux, Hyperlipidemia, Hypertension, Osteoarthritis (OA), Renal Disease Additional Past Medical History / Comment(s): Hx right breast cancer 10 yrs ago- had surgery & radiation, Hx Migraines when younger, none now. decreased kidney function, hospitalized recently @[facility] for SOB, possible leaky valve History of Any Multi-Drug Resistant Organisms: None Reported Past Surgical History: Breast Surgery, Section, Joint Replacement, Orthopedic Surgery Additional Past Surgical History / Comment(s): left torn menicus repair, dong. bunion surgeries, right lumpectomy, COLONOSCOPY, RT KNEE SCOPE, dong knee replacements Past Anesthesia/Blood Transfusion Reactions: No Reported Reaction Past Psychological History: No Psychological Hx Reported Smoking Status: Never smoker - Past Family History Mother Family Medical History: Cancer Additional Family Medical History / Comment(s): Colon cancer. General Exam - General Exam Comments Initial Comments: GENERAL: Patient is well-developed and well-nourished. Patient is nontoxic and well- hydrated and is in mild distress. ENT: Neck is soft and supple. No significant lymphadenopathy is noted. Oropharynx is clear. Moist mucous membranes. Neck has full range of motion without eliciting any pain. EYES: The sclera were anicteric and conjunctiva were pink and moist. Extraocular movements were intact and pupils were equal round and reactive to light. Eyelids were unremarkable. PULMONARY: Unlabored respirations. Good breath sounds bilaterally. Patient has crackles in the left base CARDIOVASCULAR: There is a regular rate and rhythm without any murmurs gallops or rubs. ABDOMEN: Soft and nontender with normal bowel sounds. SKIN: Skin is clear with no lesions or rashes and otherwise unremarkable. NEUROLOGIC: Patient is alert and oriented x3. Cranial nerves II through XII are grossly intact. Motor and sensory are also intact. Normal speech, volume and content. Symmetrical smile. MUSCULOSKELETAL: Normal extremities with adequate strength and full range of motion. No lower extremity swelling or edema. No calf tenderness. LYMPHATICS: No significant lymphadenopathy is noted PSYCHIATRIC: Normal psychiatric evaluation. Limitations: no limitations Course Vital Signs 09/25/23 10:42 Temperature 97.7 F Pulse Rate 90 Respiratory 16 Rate Blood Pressure 167/81 O2 Sat by Pulse 98 Oximetry Medical Decision Making - Medical Decision Making EKG is interpreted by myself. EKG shows a sinus rhythm with occasional PACs at 69 bpm parables 146 QRS is 85 QT interval 374 QTc is 393. Patient's EKG shows no ST segment ovation or depression. Was pt. sent in by a medical professional or institution (, PA, SADDLE STITCHER, urgent care, hospital, or usp...) When possible be specific @ -No Did you speak to anyone other than the patient for history (EMS, parent, family, police, friend...)? What history was obtained from this source @ -No Did you review nursing and triage notes (agree or disagree)? Why? @ -I reviewed and agree with nursing and triage notes Were old charts reviewed (outside hosp., previous admission, EMS record, old EKG, old radiological studies, urgent care reports/EKG's, usp records)? Report findings @ -I reviewed prior lab work. Patient's BNP today was much higher than prior lab work. I compared today's EKG with the previous EKG and they are similar with no acute findings Differential Diagnosis (chest pain, altered mental status, abdominal pain women, abdominal pain men, vaginal bleeding, weakness, fever, dyspnea, syncope, headache, dizziness, GI bleed, back pain, seizure, CVA, palpatations, mental health, musculoskeletal)? @ -Differential Dyspnea: Coronary syndrome, arrhythmia, tamponade, asthma, COPD, pulmonary embolism, pneumonia, pneumothorax, pulmonary effusion, anaphylaxis, diabetic ketoacidosis, flailed chest, pulmonary contusion, diaphragmatic rupture, anemia, neuromuscular, this is not meant to be an all-inclusive list. EKG interpreted by me (3pts min.). @ -As above X-rays interpreted by me (1pt min.). @ -Chest x-ray shows no acute abnormality CT interpreted by me (1pt min.). @ -None done U/S interpreted by me (1pt. min.). @ -None done What testing was considered but not performed or refused? (CT, X-rays, U/S, labs)? Why? @ -None What meds were considered but not given or refused? Why? @ -None Did you discuss the management of the patient with other professionals (professionals i.e. ., PA, SADDLE STITCHER, lab, RT, psych nurse, hospice social worker, cook apprentice, teacher, fire officer, medical case manager)? Give summary @ -I spoke with Dr. Miguel Rivera wanted the patient to follow-up with her as an outpatient Was smoking cessation discussed for >3mins.? @ -No Was critical care preformed (if so, how long)? @ -No Were there social determinants of health that impacted care today? How? (Homelessness, low income, unemployed, alcoholism, drug addiction, transportation, low edu. Level, literacy, decrease access to med. care, retirement, rehab)? @ -No Was there de-escalation of care discussed even if they declined (Discuss DNR or withdrawal of care, Hospice)? DNR status @ -No What co-morbidities impacted this encounter? (DM, HTN, Smoking, COPD, CAD, Cancer, CVA, ARF, Chemo, Hep., AIDS, mental health diagnosis, sleep apnea, morbid obesity)? @ -None Was patient admitted / discharged? Hospital course, mention meds given and route, prescriptions, significant lab abnormalities, going to OR and other pertinent info. @ -Patient had lab work as well as chest x-ray and all were within normal range. Patient was able to walk around the ER at 98% pulse ox and feeling considerably better. Patient did take a Lasix just prior to arrival. Undiagnosed new problem with uncertain prognosis? @ -No Drug Therapy requiring intensive monitoring for toxicity (Heparin, Nitro, Insulin, Cardizem)? @ -No Were any procedures done? @ -No Diagnosis/symptom? @ -Dyspnea Acute, or Chronic, or Acute on Chronic? @ -Acute Uncomplicated (without systemic symptoms) or Complicated (systemic symptoms)? @ -Complicated Side effects of treatment? @ -No Exacerbation, Progression, or Severe Exacerbation? @ -No Poses a threat to life or bodily function? How? (Chest pain, [place], [place], pneumonia, PE, COPD, DKA, ARF, appy, cholecystitis, CVA, Diverticulitis, Homicidal, Suicidal, threat to staff... and all critical care pts) @ -No - Lab Data Result diagrams: 09/25/23 11:07 09/25/23 11:07 Lab Results 09/25/23 09/25/23 09/25/23 Range/Units 11:07 11:07 11:07 WBC 6.5 (3.8-10.6) k/uL RBC 4.32 (3.80-5.40) m/uL Hgb 13.6 (11.4-16.0) gm/dL Hct 41.6 (34.0-46.0) % MCV 96.3 (80.0-100.0) fL MCH 31.5 (25.0-35.0) pg MCHC 32.7 (31.0-37.0) g/dL RDW 14.0 (11.5-15.5) % Plt Count 261 (150-450) k/uL MPV 8.1 Neutrophils % 82 % Lymphocytes % 11 % Monocytes % 4 % Eosinophils % 2 % Basophils % 1 % Neutrophils # 5.3 (1.3-7.7) k/uL Lymphocytes # 0.7 L (1.0-4.8) k/uL Monocytes # 0.3 (0-1.0) k/uL Eosinophils # 0.1 (0-0.7) k/uL Basophils # 0.0 (0-0.2) k/uL PT 10.3 (10.0-12.5) sec INR 0.9 (<1.2) APTT 22.3 (22.0-30.0) sec Sodium 135 L (137-145) mmol/L Potassium 4.2 (3.5-5.1) mmol/L Chloride 103 (98-107) mmol/L Carbon Dioxide 24 (22-30) mmol/L Anion Gap 8 mmol/L BUN 28 H (7-17) mg/dL Creatinine 1.27 H (0.52-1.04) mg/dL Est GFR (CKD-EPI)AfAm 46 (>60 ml/min/1.73 sqM) Est GFR (CKD-EPI)NonAf 40 (>60 ml/min/1.73 sqM) Glucose 151 H (74-99) mg/dL Plasma Lactic Acid Vitaly (0.7-2.0) mmol/L Calcium 9.0 (8.4-10.2) mg/dL Magnesium 1.8 (1.6-2.3) mg/dL Total Bilirubin 0.8 (0.2-1.3) mg/dL AST 66 H (14-36) U/L ALT 42 H (4-34) U/L Alkaline Phosphatase 130 H (38-126) U/L Troponin I (0.000-0.034) ng/mL NT-Pro-B Natriuret Pep 74500 pg/mL Total Protein 7.1 (6.3-8.2) g/dL Albumin 4.0 (3.5-5.0) g/dL 09/25/23 09/25/23 Range/Units 11:07 11:07 WBC (3.8-10.6) k/uL RBC (3.80-5.40) m/uL Hgb (11.4-16.0) gm/dL Hct (34.0-46.0) % MCV (80.0-100.0) fL MCH (25.0-35.0) pg MCHC (31.0-37.0) g/dL RDW (11.5-15.5) % Plt Count (150-450) k/uL MPV Neutrophils % % Lymphocytes % % Monocytes % % Eosinophils % % Basophils % % Neutrophils # (1.3-7.7) k/uL Lymphocytes # (1.0-4.8) k/uL Monocytes # (0-1.0) k/uL Eosinophils # (0-0.7) k/uL Basophils # (0-0.2) k/uL PT (10.0-12.5) sec INR (<1.2) APTT (22.0-30.0) sec Sodium (137-145) mmol/L Potassium (3.5-5.1) mmol/L Chloride (98-107) mmol/L Carbon Dioxide (22-30) mmol/L Anion Gap mmol/L BUN (7-17) mg/dL Creatinine (0.52-1.04) mg/dL Est GFR (CKD-EPI)AfAm (>60 ml/min/1.73 sqM) Est GFR (CKD-EPI)NonAf (>60 ml/min/1.73 sqM) Glucose (74-99) mg/dL Plasma Lactic Acid Vitaly 2.0 (0.7-2.0) mmol/L Calcium (8.4-10.2) mg/dL Magnesium (1.6-2.3) mg/dL Total Bilirubin (0.2-1.3) mg/dL AST (14-36) U/L ALT (4-34) U/L Alkaline Phosphatase (38-126) U/L Troponin I 0.025 (0.000-0.034) ng/mL NT-Pro-B Natriuret Pep pg/mL Total Protein (6.3-8.2) g/dL Albumin (3.5-5.0) g/dL Disposition Clinical Impression: Dyspnea Disposition: HOME SELF-CARE Instructions (If sedation given, give patient instructions): Dyspnea (ED) Is patient prescribed a controlled substance at d/c from ED?: No Referrals: Kervin Rivera DO [Primary Care Provider] - 1-2 days Time of Disposition: 12:59
[2023-09-25 12:06] LABS: ALT 42 U/L (4-34); AST 66 U/L (14-36); African American GFR (CKD) 46 (>60 ml/min/1.73 sqM); Alkaline Phosphatase 130 U/L (38-126); Anion Gap 8 mmol/L; Blood Urea Nitrogen 28 mg/dL (7-17); Carbon Dioxide 24 mmol/L (22-30); Chloride 103 mmol/L (98-107); Glucose 151 mg/dL (74-99); Magnesium 1.8 mg/dL (1.6-2.3); Non-African American GFR(CKD) 40 (>60 ml/min/1.73 sqM); Sodium 135 mmol/L (137-145); Total Bilirubin 0.8 mg/dL (0.2-1.3); Total Protein 7.1 g/dL (6.3-8.2)
[2023-09-25 12:13] LABS: NT-Pro-B-Type Natriuretic Pept 16000 pg/mL
[2023-09-25 12:30] LABS: Potassium 4.2 mmol/L (3.5-5.1)
[2023-09-25 13:50] VITALS: BP 164/94; PULSE 71
== END 2023-09-25 13:27 | disposition home or self-care (01) ==
LOC: EC 10:41
DX: R06.00 Dyspnea, unspecified (principal); Z88.5 Allergy status to narcotic agent
CPT/HCPCS: 36415; 71046; 80053; 83605; 83735; 83880; 84484; 85025; 85610; 85730; 93005; 99285

== ENCOUNTER → 2023-11-21 | Outpatient (CLI) | payer MEDICARE ==
--- NOTE | 2023-11-21 19:16 | US ---
EXAMINATION TYPE: US arterial LE single level DATE OF EXAM: 11/21/2023 2:11 PM CLINICAL INDICATION: Female, 82 years old with history of I73.9 POSITIVE PAD; No leg pain or arterial extremity history per patient. History of: Smoker: Previous Hypertension: Takes medication Diabetic: No Hyperlipidemia: Yes Previous Vascular Surgery: No CAD: murmur NV: No Vascular Ulcers: No Claudication: No Gangrene: No Doppler Waveforms: Right: Multiphasic waveforms within the right popliteal and posterior tibial arteries. Biphasic withi n the dorsalis pedis. Monophasic within the right femoral and right digit. Left: Multiphasic waveform within the dorsalis pedis. Biphasic waveforms within the popliteal and pos terior tibial arteries. Monophasic within the femoral and digit. Right Brachial Pressure: 153 Left Brachial Pressure: 147 Ankle-Brachial Indices: Right: 1.3 Left: 1.3 (Vessel hardening > 1.4; Normal 0.9 - 1.4, Moderate 0.7 - 0.9, Severe 0.5-0.7) IMPRESSION: Normal ankle-brachial indices bilaterally.
== END | disposition home or self-care (01) ==
LOC: RADUSWWP 13:17
PROVIDERS: ATTEND Family Medicine
DX: I73.9 Peripheral vascular disease, unspecified (principal)
CPT/HCPCS: 93922

== ENCOUNTER → 2023-12-30 | Outpatient (CLI) | payer MEDICARE ==
--- NOTE | 2024-01-27 08:46 | MM ---
Reason for Exam: Screening (asymptomatic). Last mammogram was performed 1 year(s) and 1 month(s) ago. Patient History: Menarche at age 15. First Full-Term at age 19. Postmenopausal. Breast cancer, right, age 65. Previous chest radiation therapy at age 64. Estrogen for 1 year, 6 months, from age 57 until age 58. Progesterone for 1 year, 6 months, from age 57 until age 58. Hormonal Contraceptives for 6 months until age 21. Tamoxifen for 5 years from age 65 until age 70. 2018, Benign Excisional Biopsy on the right side. 01/29/2006, Malignant Core Biopsy on the right side. 2005, Radiation Therapy on the right side. Maternal grandmother had breast cancer, age 70. Prior Study Comparison: 12/18/2020 Bilateral Diagnostic Mammogram, [facility]. 12/19/2021 Bilateral MG 3D screening mammo w/cad, [facility]. 12/20/2022 Bilateral MG 3D diag mammo w/cad [facility], [facility]. Tissue Density: There are scattered areas of fibroglandular density. Findings: Analyzed By CAD. Right breast biopsy clip. Right breast: There is no suspicious group of microcalcifications or new suspicious mass. Left breast: There is no suspicious group of microcalcifications or new suspicious mass. Overall Assessment: Negative, BI-RAD 1 Management: Screening Mammogram of both breasts in [address] [facility] will attempt to contact patient to return for supplemental views and ultrasound if indicated. Patient should continue monthly self-breast exams. A clinical breast exam by your physician is recommended on an annual basis. This exam should not preclude additional follow-up of suspicious palpable abnormalities. Note on Ruthann scores and lifetime risk: 1. A Ruthann score greater than 3% is considered moderate risk. If this is the case, consider specialist referral to assess eligibility for a risk reducing agent. 2. If overall lifetime risk for the development of breast cancer is 20% or higher, the patient may qualify for future screening with alternating mammogram and breast MRI. Electronically signed and approved by: Art Franco DO
== END | disposition home or self-care (01) ==
LOC: RADMAMWWP 11:00
PROVIDERS: ATTEND Family Medicine
DX: Z12.31 Encounter for screening mammogram for malignant neoplasm of breast (principal); Z78.0 Asymptomatic menopausal state; Z80.3 Family history of malignant neoplasm of breast; Z92.3 Personal history of irradiation
CPT/HCPCS: 77063; 77067

== ENCOUNTER 2024-05-19 18:05 | Emergency (ER) | payer MEDICARE ==
[2024-05-19 19:05] LABS: Basophils % (A) 0 %; Eosinophils # (A) 0.2 k/uL (0-0.7); Eosinophils % (A) 2 %; HCT 38.5 % (34.0-46.0); HGB 12.6 gm/dL (11.4-16.0); Lymphocytes # (A) 0.5 k/uL (1.0-4.8); Lymphocytes % (A) 5 %; MCH 31.6 pg (25.0-35.0); MCHC 32.7 g/dL (31.0-37.0); MCV 96.5 fL (80.0-100.0); Mean Platelet Volume 7.9; Monocytes # (A) 0.5 k/uL (0-1.0); Monocytes % (A) 5 %; Neutrophils # (A) 8.9 k/uL (1.3-7.7); Neutrophils % (A) 87 %; Platelet Count 220 k/uL (150-450); RBC 3.99 m/uL (3.80-5.40); RDW 14.1 % (11.5-15.5); WBC 10.2 k/uL (3.8-10.6)
--- NOTE | 2024-05-19 19:10 | XR ---
EXAMINATION TYPE: XR chest 2V DATE OF EXAM: 05/19/2024 7:04 PM COMPARISON: Prior chest radiographs, most recently dated 09/25/2023. CLINICAL INDICATION: Female, 83 years old with history of difficulty breathing; [facility] TECHNIQUE: XR chest 2V Frontal and lateral views of the chest. FINDINGS: Lungs/Pleura: There is no evidence of pleural effusion, focal consolidation, or pneumothorax. Lungs hyperinflated bilaterally with coarsening of the interstitial markings. Pulmonary vascularity: Unremarkable. Heart/mediastinum: Cardiomediastinal silhouette is unremarkable. Musculoskeletal: No acute osseous pathology. Other findings: None IMPRESSION: 1. No acute cardiopulmonary disease/process. 2. Findings suggestive of underlying COPD. [facility], , 05/19/2024 7:08 PM
[2024-05-19 19:18] LABS: ALT 22 U/L (4-34); AST 34 U/L (14-36); African American GFR (CKD) 34 (>60 ml/min/1.73 sqM); Albumin 4.2 g/dL (3.5-5.0); Alkaline Phosphatase 115 U/L (38-126); Anion Gap 9 mmol/L; Blood Urea Nitrogen 38 mg/dL (7-17); Carbon Dioxide 26 mmol/L (22-30); Chloride 101 mmol/L (98-107); Glucose 165 mg/dL (74-99); Non-African American GFR(CKD) 29 (>60 ml/min/1.73 sqM); Potassium 4.4 mmol/L (3.5-5.1); Sodium 136 mmol/L (137-145); Total Bilirubin 0.4 mg/dL (0.2-1.3)
[2024-05-19 19:21] LABS: Prothrombin Time 10.7 sec (10.0-12.5)
--- NOTE | 2024-05-19 19:33 | ED ---
SOB HPI - General Chief Complaint: Shortness of Breath Stated Complaint: [facility] Time Seen by Provider: 05/19/24 18:10 Source: patient, family Mode of arrival: ambulatory Limitations: no limitations - History of Present Illness Initial Comments: 83-year-old female with past medical history of A-fib, COPD, congestive heart failure who presents emergency department reporting shortness of breath. She was at her daughter's house when she had sudden onset of shortness of breath. She did not have her inhaler on her. She started having a terrible coughing fit and then ended up vomiting on herself and this is what prompted them to come to the hospital. Patient states she feels better at this time. Denies any infectious symptoms to include fevers or chills. Cough is not productive. She denies any nausea or vomiting at this time. She does have a history of heart failure. Denies any lower extremity swelling. She does take 20 mg of Lasix twice a day. Denies any missed doses. She denies any chest pain. No history of coronary disease. No other alleviating, precipitating or modifying factors - Related Data Home Medications Medication Instructions Recorded Confirmed Apixaban [Eliquis] 2.5 mg PO BID 08/23/22 09/25/23 Aspirin 81 mg PO DAILY 07/24/23 09/25/23 Atorvastatin [Lipitor] 40 mg PO HS 07/24/23 09/25/23 Empagliflozin [Jardiance] 10 mg PO DAILY 07/24/23 09/25/23 Furosemide [Lasix] 20 mg PO DAILY 07/24/23 09/25/23 Metoprolol Succinate (ER) [Toprol 50 mg PO DAILY 07/24/23 09/25/23 Xl] Omeprazole 20 mg PO DAILY 07/24/23 09/25/23 Albuterol Sulfate [Albuterol 1 puff INHALATION RT-Q4H PRN 09/25/23 09/25/23 Sulfate Hfa] Beets 1 tab PO DAILY 09/25/23 09/25/23 Ferrous Sulfate [Feosol] 325 mg PO DAILY 09/25/23 09/25/23 Fluticasone/Vilanterol [Breo 1 puff INHALATION RT-DAILY 09/25/23 09/25/23 Ellipta 100-25 Mcg Inhalr] Krill/[place]-3/Dha/Epa/Lipids 1 cap PO DAILY 09/25/23 09/25/23 [Krill Oil 350 mg Softgel] Magnesium 250 mg PO DAILY 09/25/23 09/25/23 lisinopriL [Zestril] 5 mg PO DAILY 09/25/23 09/25/23 Allergies Allergy/AdvReac Type Severity Reaction Status Date / Time oxycodone [From OxyContin] AdvReac Nausea & Verified 09/25/23 12:13 Vomiting Review of Systems ROS Statement: Those systems with pertinent positive or pertinent negative responses have been documented in the HPI. ROS Other: All systems not noted in ROS Statement are negative. Past Medical History Past Medical History: Atrial Fibrillation, Cancer, COPD, GERD/Reflux, Hyperlipidemia, Hypertension, Osteoarthritis (OA), Renal Disease Additional Past Medical History / Comment(s): Hx right breast cancer 10 yrs ago- had surgery & radiation, Hx Migraines when younger, none now. decreased kidney function, hospitalized recently @[facility] for SOB, possible leaky valve History of Any Multi-Drug Resistant Organisms: None Reported Past Surgical History: Breast Surgery, Section, Joint Replacement, Orthopedic Surgery Additional Past Surgical History / Comment(s): left torn menicus repair, dong. bunion surgeries, right lumpectomy, COLONOSCOPY, RT KNEE SCOPE, dong knee replacements Past Anesthesia/Blood Transfusion Reactions: No Reported Reaction Past Psychological History: No Psychological Hx Reported Smoking Status: Never smoker Past Alcohol Use History: None Reported Past Drug Use History: None Reported - Past Family History Mother Family Medical History: Cancer Additional Family Medical History / Comment(s): Colon cancer. General Exam Limitations: no limitations General appearance: alert, in no apparent distress Head exam: Present: atraumatic, normocephalic, normal inspection Eye exam: Present: normal appearance, PERRL, EOMI. Absent: scleral icterus, conjunctival injection, periorbital swelling ENT exam: Present: normal exam, mucous membranes moist Neck exam: Present: normal inspection. Absent: tenderness, meningismus, lymphadenopathy Respiratory exam: Present: normal lung sounds bilaterally. Absent: respiratory distress, wheezes, rales, rhonchi, stridor Cardiovascular Exam: Present: regular rate, normal rhythm, normal heart sounds. Absent: systolic murmur, diastolic murmur, rubs, gallop, clicks GI/Abdominal exam: Present: soft, normal bowel sounds. Absent: distended, tenderness, guarding, rebound, rigid Extremities exam: Present: normal inspection, full ROM, normal capillary refill. Absent: tenderness, pedal edema, joint swelling, calf tenderness Back exam: Present: normal inspection Neurological exam: Present: alert, oriented X3, CN II-XII intact Psychiatric exam: Present: normal affect, normal mood Skin exam: Present: warm, dry, intact, normal color. Absent: rash Course Vital Signs 05/19/24 05/19/24 05/19/24 18:09 19:54 19:57 Temperature 98.2 F Pulse Rate 97 89 Respiratory 18 18 Rate Blood Pressure 153/82 145/73 O2 Sat by Pulse 92 L 96 92 L Oximetry 05/19/24 05/19/24 05/19/24 20:19 20:36 21:00 Temperature Pulse Rate 85 88 90 Respiratory 18 Rate Blood Pressure 140/75 O2 Sat by Pulse 91 L Oximetry Medical Decision Making - Medical Decision Making Was pt. sent in by a medical professional or institution (, PA, MICROBIOLOGY LAB TECHNICIAN, urgent care, hospital, or alf...) When possible be specific @ -No Did you speak to anyone other than the patient for history (EMS, parent, family, police, friend...)? What history was obtained from this source @ -Spoke with the daughter for history Did you review nursing and triage notes (agree or disagree)? Why? @ -I reviewed and agree with nursing and triage notes Were old charts reviewed (outside hosp., previous admission, EMS record, old EKG, old radiological studies, urgent care reports/EKG's, alf records)? Report findings @ -I reviewed previous troponin levels Differential Diagnosis (chest pain, altered mental status, abdominal pain women, abdominal pain men, vaginal bleeding, weakness, fever, dyspnea, syncope, headache, dizziness, GI bleed, back pain, seizure, CVA, palpatations, mental health, musculoskeletal)? @ -Differential Dyspnea: Coronary syndrome, arrhythmia, tamponade, asthma, COPD, pulmonary embolism, pneumonia, pneumothorax, pulmonary effusion, anaphylaxis, diabetic ketoacidosis, flailed chest, pulmonary contusion, diaphragmatic rupture, anemia, neuromuscular, this is not meant to be an all-inclusive list. EKG interpreted by me (3pts min.). @ -yes and demonstrates sinus rhythm with PVCs. Rate of 97. SC interval 149. QRS 90. QTc of 390. No acute ST segment elevations or depressions X-rays interpreted by me (1pt min.). @ -Yes and demonstrates COPD CT interpreted by me (1pt min.). @ -None done U/S interpreted by me (1pt. min.). @ -None done What testing was considered but not performed or refused? (CT, X-rays, U/S, labs)? Why? @ -None What meds were considered but not given or refused? Why? @ -None Did you discuss the management of the patient with other professionals (professionals i.e. , PA, MICROBIOLOGY LAB TECHNICIAN, lab, RT, psych nurse, forensic social worker, machine tack puller, teacher, community reinvestment act officer, piano case and bench assembler)? Give summary @ -No Was smoking cessation discussed for >3mins.? @ -No Was critical care preformed (if so, how long)? @ -No Were there social determinants of health that impacted care today? How? (Homelessness, low income, unemployed, alcoholism, drug addiction, transportation, low edu. Level, literacy, decrease access to med. care, [place] [facility], rehab)? @ -No Was there de-escalation of care discussed even if they declined (Discuss DNR or withdrawal of care, Hospice)? DNR status @ -No What co-morbidities impacted this encounter? (DM, HTN, Smoking, COPD, CAD, Cancer, CVA, ARF, Chemo, Hep., AIDS, mental health diagnosis, sleep apnea, m orbid obesity)? @ -A-fib, COPD Was patient admitted / discharged? Hospital course, mention meds given and route, prescriptions, significant lab abnormalities, going to OR and other pertinent info. @ -Upon arrival patient seen and evaluated in bed 14. Thorough history and physical exam was performed. She is placed on continuous pulse ox and cardiac monitoring. Twelve-lead EKG is obtained. Laboratory studies are conducted. Patient does have a mildly elevated troponin. I did recommend admission however patient states she feels fine at this time and wants to go home. I did recommend that we complete a second troponin level for which she was agreeable. Undiagnosed new problem with uncertain prognosis? @ -No Drug Therapy requiring intensive monitoring for toxicity (Heparin, Nitro, Insu justa, Cardizem)? @ -No Were any procedures done? @ -No Diagnosis/symptom? @ -Acute respiratory insufficiency Acute, or Chronic, or Acute on Chronic? @ -acute Uncomplicated (without systemic symptoms) or Complicated (systemic symptoms)? @ -complicated Side effects of treatment? @ -No Exacerbation, Progression, or Severe Exacerbation? @ -No Poses a threat to life or bodily function? How? (Chest pain, [place], AL, pneumonia, PE, COPD, DKA, ARF, appy, cholecystitis, CVA, Diverticulitis, Homicidal, Suicidal, threat to staff... and all critical care pts) @ -No - Lab Data Result diagrams: 05/19/24 18:56 05/19/24 18:56 Lab Results 05/19/24 05/19/24 05/19/24 Range/Units 18:56 18:56 18:56 WBC 10.2 (3.8-10.6) k/uL RBC 3.99 (3.80-5.40) m/uL Hgb 12.6 (11.4-16.0) gm/dL Hct 38.5 (34.0-46.0) % MCV 96.5 (80.0-100.0) fL MCH 31.6 (25.0-35.0) pg MCHC 32.7 (31.0-37.0) g/dL RDW 14.1 (11.5-15.5) % Plt Count 220 (150-450) k/uL MPV 7.9 Neutrophils % 87 % Lymphocytes % 5 % Monocytes % 5 % Eosinophils % 2 % Basophils % 0 % Neutrophils # 8.9 H (1.3-7.7) k/uL Lymphocytes # 0.5 L (1.0-4.8) k/uL Monocytes # 0.5 (0-1.0) k/uL Eosinophils # 0.2 (0-0.7) k/uL Basophils # 0.0 (0-0.2) k/uL PT 10.7 (10.0-12.5) sec INR 1.0 (<1.2) APTT 22.0 (22.0-30.0) sec Sodium 136 L (137-145) mmol/L Potassium 4.4 (3.5-5.1) mmol/L Chloride 101 (98-107) mmol/L Carbon Dioxide 26 (22-30) mmol/L Anion Gap 9 mmol/L BUN 38 H (7-17) mg/dL Creatinine 1.62 H (0.52-1.04) mg/dL Est GFR (CKD-EPI)AfAm 34 (>60 ml/min/1.73 sqM) Est GFR (CKD-EPI)NonAf 29 (>60 ml/min/1.73 sqM) Glucose 165 H (74-99) mg/dL Plasma Lactic Acid Vitaly (0.7-2.0) mmol/L Calcium 9.0 (8.4-10.2) mg/dL Total Bilirubin 0.4 (0.2-1.3) mg/dL AST 34 (14-36) U/L ALT 22 (4-34) U/L Alkaline Phosphatase 115 (38-126) U/L Troponin I (0.000-0.034) ng/mL NT-Pro-B Natriuret Pep pg/mL Total Protein 7.0 (6.3-8.2) g/dL Albumin 4.2 (3.5-5.0) g/dL 05/19/24 05/19/24 05/19/24 Range/Units 18:56 18:56 18:56 WBC (3.8-10.6) k/uL RBC (3.80-5.40) m/uL Hgb (11.4-16.0) gm/dL Hct (34.0-46.0) % MCV (80.0-100.0) fL MCH (25.0-35.0) pg MCHC (31.0-37.0) g/dL RDW (11.5-15.5) % Plt Count (150-450) k/uL MPV Neutrophils % % Lymphocytes % % Monocytes % % Eosinophils % % Basophils % % Neutrophils # (1.3-7.7) k/uL Lymphocytes # (1.0-4.8) k/uL Monocytes # (0-1.0) k/uL Eosinophils # (0-0.7) k/uL Basophils # (0-0.2) k/uL PT (10.0-12.5) sec INR (<1.2) APTT (22.0-30.0) sec Sodium (137-145) mmol/L Potassium (3.5-5.1) mmol/L Chloride (98-107) mmol/L Carbon Dioxide (22-30) mmol/L Anion Gap mmol/L BUN (7-17) mg/dL Creatinine (0.52-1.04) mg/dL Est GFR (CKD-EPI)AfAm (>60 ml/min/1.73 sqM) Est GFR (CKD-EPI)NonAf (>60 ml/min/1.73 sqM) Glucose (74-99) mg/dL Plasma Lactic Acid Vitaly 1.3 (0.7-2.0) mmol/L Calcium (8.4-10.2) mg/dL Total Bilirubin (0.2-1.3) mg/dL AST (14-36) U/L ALT (4-34) U/L Alkaline Phosphatase (38-126) U/L Troponin I 0.036 H* (0.000-0.034) ng/mL NT-Pro-B Natriuret Pep 2150 pg/mL Total Protein (6.3-8.2) g/dL Albumin (3.5-5.0) g/dL Disposition Clinical Impression: Acute respiratory insufficiency Disposition: HOME SELF-CARE Condition: Stable Instructions (If sedation given, give patient instructions): COPD (Chronic Obstructive Pulmonary Disease) (ED) Additional Instructions: Please use your inhaler when needed for your shortness of breath. Return for an y new or worsening symptoms Is patient prescribed a controlled substance at d/c from ED?: No Referrals: Kervin Rivera DO [Primary Care Provider] - 1-2 days Time of Disposition: 21:29
[2024-05-19] MEDS: IPRATROPIUM-ALBUTEROL 3 ML NEB INHALATION STA (20:19)
[2024-05-19 22:10] VITALS: BP 144/64; PULSE 89; RESP 16; TEMP 98.7
== END 2024-05-19 22:16 | disposition home or self-care (01) ==
LOC: EC 18:05
DX: R06.89 Other abnormalities of breathing (principal); I48.91 Unspecified atrial fibrillation; J44.9 Chronic obstructive pulmonary disease, unspecified; Z79.01 Long term (current) use of anticoagulants; Z79.899 Other long term (current) drug therapy; Z88.5 Allergy status to narcotic agent
CPT/HCPCS: 36415; 71046; 80053; 83605; 83880; 84484; 85025; 85610; 85730; 93005; 94640; 99285